=== PATIENT | male | born 1970 | race Caucasian/White ===

== ENCOUNTER 2016-06-15 16:34 | Observation (INO) | payer OTHER ==
[~2016-06-15] VITALS: Ht 182.9 cm; Wt 97.2 kg
--- NOTE | 2016-06-15 18:28 | ED ORDER SUMMARY ---
..... Patient: LILY AWAD OrderSheet [facility] VisitID: [id number] [place] [address] 46y, M Registration Date/Time: 06/15/2016 ORDER SHEET Weight: 96 kg Allergies: No Known Drug Allergy GENERAL ORDERS: [employer] Program Manager (Continuous) (16:39 06/15/2016 JSimbeck R.N. per protocol) (16:41 MWinterer R.N.) Oxygen (2 L/min) (NC) (to keep spo2 =/>94%) (16:39 06/15/2016 JSimbeck R.N. per protocol) (16:41 MWinterer R.N.) Cardiac Panel Stat (16:40 06/15/2016 JSimbeck R.N. per protocol) (Ack 16:42 TBergley) (17:00 JSimbeck R.N.) UA-Culture if indicated Urgent (16:40 06/15/2016 JSimbeck R.N. per protocol) (Ack 16:42 TBergley) (17:23 RMarsden R.N.) Pulse oximeter (16:40 06/15/2016 JSimbeck R.N. per protocol) (16:41 MWinterer R.N.) EKG - ER Stat (16:40 06/15/2016 JSimbeck R.N. per protocol) (Ack 16:42 TBergley) (16:56 TBergley) D-Dimer Urgent (17:03 06/15/2016 [facility] DO) (Ack 17:05 TBergley) (17:23 RMarsden R.N.) Blood Culture (No) (N/A) Urgent (17:43 06/15/2016 JSimbeck R.N. verbal order read back to [facility]) (17:43 JSimbeck R.N.) (Cancelled: Other17:44 JSimbeck R.N.) Chest 2V Urgent (18:05 06/15/2016 [facility]) (18:13 Jamir) MEDICATION ORDERS: Aspirin PO 325 mg (Do not crush or chew, NOW) (17:08 06/15/2016 [facility]) (17:14 RMarsden R.N.) NitroGLYCERIN Paste Topical 1.5 in. (NOW, to CW) (17:15 06/15/2016 [facility] ) (Ack 17:16 RMarsden R.N.) (17:34 RMarsden R.N.) Lovenox Subcut 80 mg (HIGH ALERT MEDICATION, NOW) (18:47 06/15/2016 [facility]) (19:23 RMarsden R.N.) GI Cocktail WHITE PO 30 mL with Lidocaine Viscous Mouth/Throat 15 mL, Maalox Plus Oral 15 mL (NOW) (19:15 06/15/2016 [facility]) (19:21 RMarsden R.N.) Insulin Reg Subcut 10 units (HIGH ALERT MEDICATION, NOW) (19:34 06/15/2016 [facility]) (Cancelled: Other19:34 [facility]) Insulin Reg Subcut 8 units (HIGH ALERT MEDICATION, NOW) (19:34 06/15/2016 [facility]) (Ack 19:36 JQuivey R.N.) (19:38 JQuivey R.N.) IV FLUIDS: IV Saline Lock (16:40 06/15/2016 Sara R.N. per protocol) (Ack 16:41 VICKYinterer R.N.) (17:02 EMMANUELimbeck R.N.) ORDER SHEET NOTES: [Electronically signed by Keshav Monge R.N. (20:32 06/15/2016)] [Electronically signed by Jason Christensen DO (20:47 06/15/2016)] [Electronically locked/signed by Keshav Monge R.N. (20:32 06/15/2016)]
--- NOTE | 2016-06-15 18:28 | ED CLINICAL REPORT ---
Clinical Report - Physicians/Mid Levels [facility] [address] [place] [address] 06/15/2016 16:36 Patient: LILY AWAD Time Seen: 16:47. Arrived- By private vehicle. Historian- patient. HISTORY OF PRESENT ILLNESS Chief Complaint: CHEST DISCOMFORT. At its maximum, severity described as moderate. When seen in the E.D., severity described as moderate. Modifying factors. Not worsened by anything. Not relieved by anything. This started today and is still present. It was gradual in onset and has been waxing/waning. Onset during light activity. It is described as dull and it is described as located in the central chest and left chest area and radiating to the left upper extremity. No nausea, vomiting or diaphoresis. He has had difficulty breathing. Similar symptoms previously: Recent medical care: Not recently seen/assessed. REVIEW OF SYSTEMS No fever, chills, fainting episodes, headache or sore throat. No abdominal pain, black stools, difficulty with urination, skin rash or enlarged lymph nodes. He has had pedal edema, joint pain, and mildly bloody stools. He has had calf pain involving the right leg and left leg (not different today). It has been similar to previous episodes. All systems otherwise negative, except as recorded above. PAST HISTORY See nurses notes. Hypertension. Diabetes mellitus. Hyperlipidemia. PCP: [facility]. No history of congestive heart failure, heart rhythm problems or pulmonary embolism. Gastroesophageal reflux. Surgeries: No history of previous surgery. SOCIAL HISTORY Smoker- current status unknown. Occasional alcohol use. No drug use. Is a local resident. FAMILY HISTORY Diabetes in first-degree relative (mother and sibling); hypertension in first-degree relative (mother and sibling). Mother " at [facility]" from a medical error. ADDITIONAL NOTES The nursing notes have been reviewed. PHYSICAL EXAM Vital Signs: 06/15/2016 16:41 BP: 147/103. HR: 103. RR: 20. O2 saturation: 98%. Temp: 97.9 F. Pain level now: 8/10. Appearance: Alert. Oriented X3. Anxious. Patient in mild distress. Eyes: Eyes normal inspection. No scleral icterus or pale conjunctivae. ENT: Pharynx normal. No pharyngeal erythema or tonsillar exudate. The mucous membranes are not dry. Neck: Normal inspection. CVS: Normal heart rate and rhythm. Heart sounds normal. Pulses normal. Respiratory: No respiratory distress. Breath sounds normal. Chest nontender. No rales, rhonchi or wheezes. Abdomen: Soft and nontender. No mass. Back: Normal external inspection. : Genital inspection normal. Rectal: Abnormal digital exam: mild tenderness. Stool heme negative. (POC test reference range: negative). Skin: Skin warm and dry. Normal skin color. Normal skin turgor. Extremities: Extremities exhibit normal ROM. No calf tenderness. No lower extremity edema. Neuro: Oriented X 3. No motor deficit. LABS, X-RAYS, AND EKG EKG: EKG time: (16:58). Normal sinus rhythm. Rate: 90. Normal P waves. Normal BENEDICT. Normal QRS complex. Non-specific ST segment / T wave abnormalities. The study has been interpreted contemporaneously by me. The EKG appears to be a good tracing. Rhythm Strip #1: Normal sinus rhythm. Regular rhythm. Narrow QRS complexes. No ectopy. Chest X-ray: No acute disease. Normal lung markings present. Normal heart size. Mediastinum normal. Great vessels normal. No infiltrate. Views: PA and lateral. Technique: good. The X-rays were interpreted contemporaneously by me. Laboratory Tests: UA-Culture if indicated: (KENNEDY: 06/15/2016 17:19) ( MsgRcvd 06/15/2016 18:42) Final results Test Result Flag Units (Reference) URINE COLOR YELLOW URINE APPEARANCE CLEAR URINE GLUCOSE 3+ (NEGATIVE) URINE BILIRUBIN NEGATIVE (NEGATIVE) URINE KETONE TRACE (NEGATIVE) URINE SPECIFIC GRAVITY 1.010 (1.010-1.030) URINE PH 5.0 (5.0-8.0) URINE PROTEIN NEGATIVE (NEGATIVE) URINE UROBILINOGEN 0.2 EU/dL (0.2-1.0) URINE NITRITE NEGATIVE (NEGATIVE) URINE BLOOD TRACE-INTACT (NEGATIVE) URINE LEUK ESTERASE NEGATIVE (NEGATIVE) URINE RBC 0-1 rbc/hpf (0-1) URINE WBC NONE SEEN wbc/hpf (0-1) URINE EPITHELIAL CELLS NONE SEEN EPI/hpf (0-5) URINE BACTERIA NONE SEEN (NONE SEEN) URINE COMMENT CULT NOT INDICATED URINE CULTURES ARE SET-UP BASED ON THE FOLLOWING CRITERIA:POSITIVE NITRITEPOSITIVE LEUKOCYTE ESTERASEGREATER THAN 10 WHITE BLOOD CELLSMODERATE (2+) OR GREATER BACTERIA CBC w Diff: (KENNEDY: 06/15/2016 16:55) ( [facility] 06/15/2016 17:20) Final results Test Result Flag Units (Reference) WHITE BLOOD COUNT 6.0 K/uL (4.5-11.5) RED BLOOD COUNT 4.96 M/uL (4.50-5.90) HEMOGLOBIN 14.3 gm/dL (13.5-17.5) HEMATOCRIT 42.5 % (41.0-53.0) MEAN CELL VOLUME 86 fL (80-100) MEAN CORPUSCULAR HGB 29 pg (26-34) MEAN CORPUSCULAR HGB CONC 34 g/dL (31-37) RED CELL DISTRIBUTION WIDTH 13.6 % (11.6-14.8) PLATELET COUNT 178 K/uL (150-400) NEUTROPHIL % 48.5 L % (50-75) LYMPH % 40.7 H % (25-40) MONO % 6.6 % (3-14) EOSINOPHIL % 1.9 % (0-4) BASOPHIL % 2.3 H % (0-2) [id number]: (KENNEDY: 06/15/2016 16:55) ( [facility] 06/15/2016 18:02) Final results Test Result Flag Units (Reference) D-DIMER QUANTITATIVE < 0.27 L ug/mLFEU (0.27-0.52) The primary value of this quantitative assay relates toits negative predictive value (i.e. exclusion) of pulmonaryembolism/deep vein thrombosis/DIC.Elevated levels of d-dimer may also occur with:, age, cancer, inflammation, liver disease,post-op, infection, hematoma, coronary disease, peripheralarteriopathy, bleeding disorders and thrombolytic treatment.Results should be correlated with other clinical andradiological data.Testing Methodology: Latex Immunoassay CHEM 13 PANEL: (KENNEDY: 06/15/2016 16:55) ( MsgRcvd 06/15/2016 18:03) Final results Test Result Flag Units (Reference) GLUCOSE 389 H mg/dL (70-110) BUN 13 mg/dL (7-18) CREATININE 1.1 mg/dL (0.6-1.3) Estimated GFR >60 mL/min Estimated GFR- >60 mL/min Note: Persistent reduction over 3 months in eGFR<60 mL/min/1.73 m2 defines CKD. Patients with eGFR values>=60 mL/min/1.73 m2 may also have CKD if evidence ofpersistent proteinuria. Additional information may be foundat [email or web address].org. SODIUM 137 mmol/L (136-145) POTASSIUM 3.9 mmol/L (3.5-5.1) CHLORIDE 99 mmol/L (98-107) CARBON DIOXIDE 31 mmol/L (21-32) CALCIUM 10.4 H mg/dL (8.5-10.1) TOTAL PROTEIN 7.7 g/dL (6.4-8.2) ALBUMIN 3.5 g/dL (3.3-5.0) BILIRUBIN, TOTAL 0.5 mg/dL (0.0-1.0) ALKALINE PHOSPHATASE 100 U/L (46-116) AST (SGOT) 16 U/L (15-37) ALT (SGPT) 34 U/L (12-78) MAGNESIUM 1.6 L mg/dL (1.8-2.4) CPK 123 U/L (24-260) TROPONIN I <0.05 L ng/mL (0.00-1.5) TROPONIN REFERENCE RANGE:<0.1 NEGATIVE0.1-1.5 INDETERMINANT>1.5 POSITIVE . Pulse Oximetry: 06/15/2016 16:41 O2 saturation: 98%. (FIO2 - room air). Interpretation: normal. PROGRESS AND PROCEDURES Course of Care: GI Cocktail 30 mL white PO given. Nitroglycerin 1.5 inches paste inches. ASA 325 mg PO given. Regular Insulin 8 units subQ given. Lovenox 80 mg subQ given. Pt with DM II and smoker. Chest discomfort is nearly resolved after NTP. He will be admitted for further work up and testing and monitoring - likely treadmill tomorrow Patient is stable. Physical exam findings are improved. Symptoms better. Discussed case with hospitalist, (Petey call returned 18:40). Reviewed test results. Agreed upon treatment plan. Health care provider will see patient in ED. Patient/family counseled. Old medical records ordered. (from [facility] [place]). Observation orders written. Disposition: Observation in Acute Care. Condition: stable and improved. CLINICAL IMPRESSION Precordial chest pain characterized as "discomfort" .12 lead EKG performed. Diarrhea. Chronic, poorly controlled type 2 diabetes with hyperglycemia. No coma. (Electronically signed by Jason Christensen DO 06/15/2016 20:47)
--- NOTE | 2016-06-15 18:28 | ED NURSING NOTES ---
Clinical Report - Nurses [facility] [address] [place] [address] 06/15/2016 16:36 [id number] Triage time 16:41. Acuity: LEVEL 3. Chief Complaint: CHEST PAIN and (Severe heartburn in epigastric region that radiates to both sides, feels like he was punched in the ribs on the left side, onset this am at rest.). 16:56 06/15/16. ( BG 321). SEPSIS SCREEN: Sepsis Screen. Negative (no infection suspected/documented). HERMANN COMA SCORE: Hermann Coma Scale: 15- eyes open spontaneously (4); best verbal response- oriented x 4 (5); best motor response- obeys commands (6). --16:56 Hilton Hernández R.N. 16:41 06/15/16. BP: 147/103 (regular adult cuff) taken on the right arm, while sitting. HR: 103. RR: 20. O2 saturation: 98% on room air. Temp: 97.9 F (oral). Pain level now: 09/26. --16:56 Hilton Hernández R.N. 16:57 06/15/16. --16:58 Hilton Hernández R.N. Weight: 96 kg. Height/Length: 72 inches. BMI: 28.7. --16:41 Hilton Hernández R.N. Medications MetFORMIN HCl Oral (Tablet 1000 mg) 1 tablet, 2x a day. --16:44 Hilton Hernández R.N. Suposed to be taking Insulin. --16:45 Hilton Hernández R.N. Lisinopril Oral 5 mg, daily. --16:45 Hilton Hernández R.N. Ibuprofen Oral (Tablet 800 mg) 1 tablet, 4x a day as needed. --16:47 Hilton Hernández R.N. Suposed to be taking Baby ASA. --16:48 Hilton Hernández R.N. The following entry was struck and corrected by Hilton Hernández R.N., 16:54 (06/15/16) Reason for correction - other(correction). <<STRICKEN ENTRY-- Lisinopril Oral. --16:45 Hilton Hernández R.N. --END STRIKE>> The following entry was struck and corrected by Hilton Hernández R.N., 16:54 (06/15/16) Reason for correction - other(correction). <<STRICKEN ENTRY-- MetFORMIN HCl Oral. --16:44 Hilton Hernández R.N. --END STRIKE>> The following entry was struck and corrected by Hilton Hernández R.N., 16:54 (06/15/16) Reason for correction - other(correction). <<STRICKEN ENTRY-- Ibuprofen Oral. --16:47 Hilton Hernández R.N. --END STRIKE>>. Allergies No Known Drug Allergy. --16:44 Hilton Hernández R.N. History Historian: patient. Accompanied by family. SOCIAL HX: Smoker- current status unknown (cigarette and electronic cigarrettes). Occasional alcohol use. No drug use. ABUSE ASSESSMENT: No report of abuse. --16:56 Hilton Hernández R.N. The patient has had difficulty breathing. ( also dizzy and lightheaded today since onset of CP). --16:58 Hilton Hernández R.N. SOCIAL HX: Former smoker (Correction: former smoker, now 'Vapes'). --17:03 Hilton Hernández R.N. PROBLEMS: Elevated Cholesterol. Hypertension. Diabetes Mellitus. --16:49 Hilton Hernández R.N. ADDITIONAL SURGERIES: no known surgeries. Interventions ID band on patient. To treatment room. --16:56 Hilton Hernández R.N. PHYSICAL ASSESSMENT 16:55. Ambulatory to room. GENERAL / NEURO / PSYCH: Alert. Oriented X 4. Appears in pain and anxious. HEENT: Mucous membranes are pink. RESPIRATORY: Respirations not labored. Chest wall tenderness. Breath sounds within normal limits. CVS: Normal sinus rhythm noted. Cardiac rhythm: normal sinus rhythm. Heart sounds within normal limits. Pulses within normal limits. Capillary refill less than 2 seconds. GI / : Abdomen soft. ( epigastric pain). EXTREMITIES: No lower extremity edema. SKIN: Skin is warm and dry. Normal skin turgor. Skin is non-tender. --17:11 Hilton Hernández R.N. NURSING PROGRESS NOTES 16:52 06/15/2016 Site #1 started via IV in the right forearm with an 20g angiocath, with aseptic technique and good blood return; one attempt. Blood drawn: rainbow set. Labeled in the presence of the patient and sent to the lab. Saline lock flushed with 10 mL saline (IV started by Keshav Roy RN). --17:02 Hilton Hernández R.N. EKG time: (4318). EKG was ordered, performed by a tech and shown to the ED physician. --17:02 Elvira Costa 16:55. computer hardware developer, pulse oximeter and NIBP monitor placed on patient; dial painter- Lead II, aVR and V1; monitor alarms on. Patient gowned. Head of bed elevated. Reassurance given. Two patient identifiers checked. Call light placed in reach. Bed placed in lowest position. Brakes of bed on. Patient ready for evaluation- chart flagged. --17:12 Hilton Hernández R.N. 17:13 06/15/2016 Aspirin PO Tablets 325 mg given. Allergies verified and confirmed 5 rights. --17:14 Josefa Fulton R.N. 17:22 06/15/16. ( h&p given to pt to fill out.). --17:22 Yolanda Verma Patient ID band checked for patient name and birthdate: patient confirmed. Instructions provided to collect clean catch urine and patient verbalized understanding. Clean catch urine collected with return of yellow-colored clear urine; sample sent to lab for urinalysis. Specimen labeled in the presence of the patient. --17:23 Josefa Fulton R.N. 17:34 06/15/2016 NITROGLYCERIN PASTE Topical Paste 1.5 inch. Applied to the left chest. Allergies verified and confirmed 5 rights. --17:34 Josefa Fulton R.N. 19:12. Care transferred and report received. --19:12 Keshav Monge R.N. <<FREDDY ENTRY-- 19:20 06/15/2016 Lidocaine Viscous PO Solution/Elixir 15 mL given. Allergies verified and confirmed 5 rights. --19:21 Josefa Fulton R.N. --END STRIKE>> Correction. --19:21 Josefa Fulton R.N. 19:20 06/15/2016 Lidocaine Viscous PO Solution/Elixir 15 mL given. Allergies verified and confirmed 5 rights. (with Maalox Plus Oral 15ml). --19:21 Josefa Fulton R.N. 19:23 06/15/2016 Lovenox (Enoxaparin Sodium) Subcutaneous 80 mg given. Given in the left abdomen. Allergies verified and confirmed 5 rights. --19:23 Josefa Fulton R.N. 19:35 Patient eating a sandwich. --19:36 Keshav Monge R.N. 19:38 06/15/2016 Insulin Reg Subcutaneous 8 unit given. Given in the right abdomen. --19:38 Keshav Monge R.N. DISPOSITION / DISCHARGE 19:35. Condition at departure: stable. No learning barriers present. Disposition: observation in Acute Care. Transported via stretcher by tech. Patient's personal items include: glasses, Other belongings; items were transported with the patient. He did not have contacts, dentures or a hearing aid. FALL RISK ASSESSMENT: Fall risk assessment completed. No fall risk identified. --19:35 Keshav Monge R.N. 19:31 06/15/16. BP: 156/99. HR: 96. RR: 17. O2 saturation: 96% on room air. Additional comments: pt reports pain as minimal . --19:35 Keshav Monge R.N. correction to prior entry -. Transported via stretcher by nurse. --19:43 Keshav Monge R.N. Departure time: 19:43. --19:43 Keshav Monge R.N. Locked/Released at 06/15/2016 20:32 by Keshav Monge R.N.
--- NOTE | 2016-06-15 18:28 | ED NURSING NOTES ---
Clinical Report - Nurses [facility] [address] [place] [address] 06/15/2016 16:36 [id number] Triage time 16:41. Acuity: LEVEL 3. Chief Complaint: CHEST PAIN and (Severe heartburn in epigastric region that radiates to both sides, feels like he was punched in the ribs on the left side, onset this am at rest.). 16:56 06/15/16. ( BG 321). SEPSIS SCREEN: Sepsis Screen. Negative (no infection suspected/documented). HERMANN COMA SCORE: Hermann Coma Scale: 15- eyes open spontaneously (4); best verbal response- oriented x 4 (5); best motor response- obeys commands (6). --16:56 Hilton Hernández R.N. 16:41 06/15/16. BP: 147/103 (regular adult cuff) taken on the right arm, while sitting. HR: 103. RR: 20. O2 saturation: 98% on room air. Temp: 97.9 F (oral). Pain level now: 09/26. --16:56 Hilton Hernández R.N. 16:57 06/15/16. --16:58 Hilton Hernández R.N. Weight: 96 kg. Height/Length: 72 inches. BMI: 28.7. --16:41 Hilton Hernández R.N. Medications MetFORMIN HCl Oral (Tablet 1000 mg) 1 tablet, 2x a day. --16:44 Hilton Hernández R.N. Suposed to be taking Insulin. --16:45 Hilton Hernández R.N. Lisinopril Oral 5 mg, daily. --16:45 Hilton Hernández R.N. Ibuprofen Oral (Tablet 800 mg) 1 tablet, 4x a day as needed. --16:47 Hilton Hernández R.N. Suposed to be taking Baby ASA. --16:48 Hilton Hernández R.N. The following entry was struck and corrected by Hilton Hernández R.N., 16:54 (06/15/16) Reason for correction - other(correction). <<STRICKEN ENTRY-- Lisinopril Oral. --16:45 Hilton Hernández R.N. --END STRIKE>> The following entry was struck and corrected by Hilton Hernández R.N., 16:54 (06/15/16) Reason for correction - other(correction). <<STRICKEN ENTRY-- MetFORMIN HCl Oral. --16:44 Hilton Hernández R.N. --END STRIKE>> The following entry was struck and corrected by Hilton Hernández R.N., 16:54 (06/15/16) Reason for correction - other(correction). <<STRICKEN ENTRY-- Ibuprofen Oral. --16:47 Hilton Hernández R.N. --END STRIKE>>. Allergies No Known Drug Allergy. --16:44 Hilton Hernández R.N. History Historian: patient. Accompanied by family. SOCIAL HX: Smoker- current status unknown (cigarette and electronic cigarrettes). Occasional alcohol use. No drug use. ABUSE ASSESSMENT: No report of abuse. --16:56 Hilton Hernández R.N. The patient has had difficulty breathing. ( also dizzy and lightheaded today since onset of CP). --16:58 Hilton Hernández R.N. SOCIAL HX: Former smoker (Correction: former smoker, now 'Vapes'). --17:03 Hilton Hernández R.N. PROBLEMS: Elevated Cholesterol. Hypertension. Diabetes Mellitus. --16:49 Hilton Hernández R.N. ADDITIONAL SURGERIES: no known surgeries. Interventions ID band on patient. To treatment room. --16:56 Hilton Hernández R.N. PHYSICAL ASSESSMENT 16:55. Ambulatory to room. GENERAL / NEURO / PSYCH: Alert. Oriented X 4. Appears in pain and anxious. HEENT: Mucous membranes are pink. RESPIRATORY: Respirations not labored. Chest wall tenderness. Breath sounds within normal limits. CVS: Normal sinus rhythm noted. Cardiac rhythm: normal sinus rhythm. Heart sounds within normal limits. Pulses within normal limits. Capillary refill less than 2 seconds. GI / : Abdomen soft. ( epigastric pain). EXTREMITIES: No lower extremity edema. SKIN: Skin is warm and dry. Normal skin turgor. Skin is non-tender. --17:11 Hilton Hernández R.N. NURSING PROGRESS NOTES 16:52 06/15/2016 Site #1 started via IV in the right forearm with an 20g angiocath, with aseptic technique and good blood return; one attempt. Blood drawn: rainbow set. Labeled in the presence of the patient and sent to the lab. Saline lock flushed with 10 mL saline (IV started by Keshav Roy RN). --17:02 Hilton Hernández R.N. EKG time: (0418). EKG was ordered, performed by a tech and shown to the ED physician. --17:02 Elvira Costa 16:55. monitor technician, pulse oximeter and NIBP monitor placed on patient; property assessment monitor- Lead II, aVR and V1; monitor alarms on. Patient gowned. Head of bed elevated. Reassurance given. Two patient identifiers checked. Call light placed in reach. Bed placed in lowest position. Brakes of bed on. Patient ready for evaluation- chart flagged. --17:12 Hilton Hernández R.N. 17:13 06/15/2016 Aspirin PO Tablets 325 mg given. Allergies verified and confirmed 5 rights. --17:14 Josefa Fulton R.N. 17:22 06/15/16. ( h&p given to pt to fill out.). --17:22 Yolanda Verma Patient ID band checked for patient name and birthdate: patient confirmed. Instructions provided to collect clean catch urine and patient verbalized understanding. Clean catch urine collected with return of yellow-colored clear urine; sample sent to lab for urinalysis. Specimen labeled in the presence of the patient. --17:23 Josefa Fulton R.N. 17:34 06/15/2016 NITROGLYCERIN PASTE Topical Paste 1.5 inch. Applied to the left chest. Allergies verified and confirmed 5 rights. --17:34 Josefa Fulton R.N. 19:12. Care transferred and report received. --19:12 Keshav Monge R.N. <<FREDDY ENTRY-- 19:20 06/15/2016 Lidocaine Viscous PO Solution/Elixir 15 mL given. Allergies verified and confirmed 5 rights. --19:21 Josefa Fulton R.N. --END STRIKE>> Correction. --19:21 Josefa Fulton R.N. 19:20 06/15/2016 Lidocaine Viscous PO Solution/Elixir 15 mL given. Allergies verified and confirmed 5 rights. (with Maalox Plus Oral 15ml). --19:21 Josefa Fulton R.N. 19:23 06/15/2016 Lovenox (Enoxaparin Sodium) Subcutaneous 80 mg given. Given in the left abdomen. Allergies verified and confirmed 5 rights. --19:23 Josefa Fulton R.N. 19:35 Patient eating a sandwich. --19:36 Keshav Monge R.N. 19:38 06/15/2016 Insulin Reg Subcutaneous 8 unit given. Given in the right abdomen. --19:38 Keshav Monge R.N. DISPOSITION / DISCHARGE 19:35. Condition at departure: stable. No learning barriers present. Disposition: observation in Acute Care. Transported via stretcher by tech. Patient's personal items include: glasses, Other belongings; items were transported with the patient. He did not have contacts, dentures or a hearing aid. FALL RISK ASSESSMENT: Fall risk assessment completed. No fall risk identified. --19:35 Keshav Monge R.N. 19:31 06/15/16. BP: 156/99. HR: 96. RR: 17. O2 saturation: 96% on room air. Additional comments: pt reports pain as minimal . --19:35 Keshav Monge R.N. correction to prior entry -. Transported via stretcher by nurse. --19:43 Keshav Monge R.N. Departure time: 19:43. --19:43 Keshav Monge R.N. Locked/Released at 06/15/2016 20:32 by Keshav Monge R.N.
--- NOTE | 2016-06-15 18:28 | ED CLINICAL REPORT ---
Clinical Report - Physicians/Mid Levels [facility] [address] [place] [address] 06/15/2016 16:36 Patient: LILY AWAD Time Seen: 16:47. Arrived- By private vehicle. Historian- patient. HISTORY OF PRESENT ILLNESS Chief Complaint: CHEST DISCOMFORT. At its maximum, severity described as moderate. When seen in the E.D., severity described as moderate. Modifying factors. Not worsened by anything. Not relieved by anything. This started today and is still present. It was gradual in onset and has been waxing/waning. Onset during light activity. It is described as dull and it is described as located in the central chest and left chest area and radiating to the left upper extremity. No nausea, vomiting or diaphoresis. He has had difficulty breathing. Similar symptoms previously: Recent medical care: Not recently seen/assessed. REVIEW OF SYSTEMS No fever, chills, fainting episodes, headache or sore throat. No abdominal pain, black stools, difficulty with urination, skin rash or enlarged lymph nodes. He has had pedal edema, joint pain, and mildly bloody stools. He has had calf pain involving the right leg and left leg (not different today). It has been similar to previous episodes. All systems otherwise negative, except as recorded above. PAST HISTORY See nurses notes. Hypertension. Diabetes mellitus. Hyperlipidemia. PCP: [facility]. No history of congestive heart failure, heart rhythm problems or pulmonary embolism. Gastroesophageal reflux. Surgeries: No history of previous surgery. SOCIAL HISTORY Smoker- current status unknown. Occasional alcohol use. No drug use. Is a local resident. FAMILY HISTORY Diabetes in first-degree relative (mother and sibling); hypertension in first-degree relative (mother and sibling). Mother " at [facility]" from a medical error. ADDITIONAL NOTES The nursing notes have been reviewed. PHYSICAL EXAM Vital Signs: 06/15/2016 16:41 BP: 147/103. HR: 103. RR: 20. O2 saturation: 98%. Temp: 97.9 F. Pain level now: 8/10. Appearance: Alert. Oriented X3. Anxious. Patient in mild distress. Eyes: Eyes normal inspection. No scleral icterus or pale conjunctivae. ENT: Pharynx normal. No pharyngeal erythema or tonsillar exudate. The mucous membranes are not dry. Neck: Normal inspection. CVS: Normal heart rate and rhythm. Heart sounds normal. Pulses normal. Respiratory: No respiratory distress. Breath sounds normal. Chest nontender. No rales, rhonchi or wheezes. Abdomen: Soft and nontender. No mass. Back: Normal external inspection. : Genital inspection normal. Rectal: Abnormal digital exam: mild tenderness. Stool heme negative. (POC test reference range: negative). Skin: Skin warm and dry. Normal skin color. Normal skin turgor. Extremities: Extremities exhibit normal ROM. No calf tenderness. No lower extremity edema. Neuro: Oriented X 3. No motor deficit. LABS, X-RAYS, AND EKG EKG: EKG time: (16:58). Normal sinus rhythm. Rate: 90. Normal P waves. Normal BENEDICT. Normal QRS complex. Non-specific ST segment / T wave abnormalities. The study has been interpreted contemporaneously by me. The EKG appears to be a good tracing. Rhythm Strip #1: Normal sinus rhythm. Regular rhythm. Narrow QRS complexes. No ectopy. Chest X-ray: No acute disease. Normal lung markings present. Normal heart size. Mediastinum normal. Great vessels normal. No infiltrate. Views: PA and lateral. Technique: good. The X-rays were interpreted contemporaneously by me. Laboratory Tests: UA-Culture if indicated: (KENNEDY: 06/15/2016 17:19) ( MsgRcvd 06/15/2016 18:42) Final results Test Result Flag Units (Reference) URINE COLOR YELLOW URINE APPEARANCE CLEAR URINE GLUCOSE 3+ (NEGATIVE) URINE BILIRUBIN NEGATIVE (NEGATIVE) URINE KETONE TRACE (NEGATIVE) URINE SPECIFIC GRAVITY 1.010 (1.010-1.030) URINE PH 5.0 (5.0-8.0) URINE PROTEIN NEGATIVE (NEGATIVE) URINE UROBILINOGEN 0.2 EU/dL (0.2-1.0) URINE NITRITE NEGATIVE (NEGATIVE) URINE BLOOD TRACE-INTACT (NEGATIVE) URINE LEUK ESTERASE NEGATIVE (NEGATIVE) URINE RBC 0-1 rbc/hpf (0-1) URINE WBC NONE SEEN wbc/hpf (0-1) URINE EPITHELIAL CELLS NONE SEEN EPI/hpf (0-5) URINE BACTERIA NONE SEEN (NONE SEEN) URINE COMMENT CULT NOT INDICATED URINE CULTURES ARE SET-UP BASED ON THE FOLLOWING CRITERIA:POSITIVE NITRITEPOSITIVE LEUKOCYTE ESTERASEGREATER THAN 10 WHITE BLOOD CELLSMODERATE (2+) OR GREATER BACTERIA CBC w Diff: (KENNEDY: 06/15/2016 16:55) ( [facility] 06/15/2016 17:20) Final results Test Result Flag Units (Reference) WHITE BLOOD COUNT 6.0 K/uL (4.5-11.5) RED BLOOD COUNT 4.96 M/uL (4.50-5.90) HEMOGLOBIN 14.3 gm/dL (13.5-17.5) HEMATOCRIT 42.5 % (41.0-53.0) MEAN CELL VOLUME 86 fL (80-100) MEAN CORPUSCULAR HGB 29 pg (26-34) MEAN CORPUSCULAR HGB CONC 34 g/dL (31-37) RED CELL DISTRIBUTION WIDTH 13.6 % (11.6-14.8) PLATELET COUNT 178 K/uL (150-400) NEUTROPHIL % 48.5 L % (50-75) LYMPH % 40.7 H % (25-40) MONO % 6.6 % (3-14) EOSINOPHIL % 1.9 % (0-4) BASOPHIL % 2.3 H % (0-2) [id number]: (KENNEDY: 06/15/2016 16:55) ( [facility] [place]/15/[place] 18:02) Final results Test Result Flag Units (Reference) D-DIMER QUANTITATIVE < 0.27 L ug/mLFEU (0.27-0.52) The primary value of this quantitative assay relates toits negative predictive value (i.e. exclusion) of pulmonaryembolism/deep vein thrombosis/DIC.Elevated levels of d-dimer may also occur with:, age, cancer, inflammation, liver disease,post-op, infection, hematoma, coronary disease, peripheralarteriopathy, bleeding disorders and thrombolytic treatment.Results should be correlated with other clinical andradiological data.Testing Methodology: Latex Immunoassay CHEM 13 PANEL: (KENNEDY: 06/15/2016 16:55) ( MsgRcvd 06/15/2016 18:03) Final results Test Result Flag Units (Reference) GLUCOSE 389 H mg/dL (70-110) BUN 13 mg/dL (7-18) CREATININE 1.1 mg/dL (0.6-1.3) Estimated GFR >60 mL/min Estimated GFR- >60 mL/min Note: Persistent reduction over 3 months in eGFR<60 mL/min/1.73 m2 defines CKD. Patients with eGFR values>=60 mL/min/1.73 m2 may also have CKD if evidence ofpersistent proteinuria. Additional information may be foundat [email or web address]. SODIUM 137 mmol/L (136-145) POTASSIUM 3.9 mmol/L (3.5-5.1) CHLORIDE 99 mmol/L (98-107) CARBON DIOXIDE 31 mmol/L (21-32) CALCIUM 10.4 H mg/dL (8.5-10.1) TOTAL PROTEIN 7.7 g/dL (6.4-8.2) ALBUMIN 3.5 g/dL (3.3-5.0) BILIRUBIN, TOTAL 0.5 mg/dL (0.0-1.0) ALKALINE PHOSPHATASE 100 U/L (46-116) AST (SGOT) 16 U/L (15-37) ALT (SGPT) 34 U/L (12-78) MAGNESIUM 1.6 L mg/dL (1.8-2.4) CPK 123 U/L (24-260) TROPONIN I <0.05 L ng/mL (0.00-1.5) TROPONIN REFERENCE RANGE:<0.1 NEGATIVE0.1-1.5 INDETERMINANT>1.5 POSITIVE . Pulse Oximetry: 06/15/2016 16:41 O2 saturation: 98%. (FIO2 - room air). Interpretation: normal. PROGRESS AND PROCEDURES Course of Care: GI Cocktail 30 mL white PO given. Nitroglycerin 1.5 inches paste inches. ASA 325 mg PO given. Regular Insulin 8 units subQ given. Lovenox 80 mg subQ given. Pt with DM II and smoker. Chest discomfort is nearly resolved after NTP. He will be admitted for further work up and testing and monitoring - likely treadmill tomorrow Patient is stable. Physical exam findings are improved. Symptoms better. Discussed case with hospitalist, (Petey call returned 18:40). Reviewed test results. Agreed upon treatment plan. Health care provider will see patient in ED. Patient/family counseled. [place] [facility] [place] Observation orders written. Disposition: Observation in Acute Care. Condition: stable and improved. CLINICAL IMPRESSION Precordial chest pain characterized as "discomfort" .12 lead EKG performed. Diarrhea. Chronic, poorly controlled type 2 diabetes with hyperglycemia. No coma. (Electronically signed by Jason Christensen DO 06/15/2016 20:47)
--- NOTE | 2016-06-15 18:28 | ED ORDER SUMMARY ---
..... Patient: LILY AWAD OrderSheet [facility] VisitID: [id number] [place] [address] 46y, M Registration Date/Time: 06/15/2016 ORDER SHEET Weight: 96 kg Allergies: No Known Drug Allergy GENERAL ORDERS: Employment Consultant (Continuous) (16:39 06/15/2016 JSimbeck R.N. per protocol) (16:41 MWinterer R.N.) Oxygen (2 L/min) (NC) (to keep spo2 =/>94%) (16:39 06/15/2016 JSimbeck R.N. per protocol) (16:41 MWinterer R.N.) Cardiac Panel Stat (16:40 06/15/2016 JSimbeck R.N. per protocol) (Ack 16:42 TBergley) (17:00 JSimbeck R.N.) UA-Culture if indicated Urgent (16:40 06/15/2016 JSimbeck R.N. per protocol) (Ack 16:42 TBergley) (17:23 RMarsden R.N.) Pulse oximeter (16:40 06/15/2016 JSimbeck R.N. per protocol) (16:41 MWinterer R.N.) EKG - ER Stat (16:40 06/15/2016 JSimbeck R.N. per protocol) (Ack 16:42 TBergley) (16:56 TBergley) D-Dimer Urgent (17:03 06/15/2016 [facility] DO) (Ack 17:05 TBergley) (17:23 RMarsden R.N.) Blood Culture (No) (N/A) Urgent (17:43 06/15/2016 JSimbeck R.N. verbal order read back to [facility]) (17:43 JSimbeck R.N.) (Cancelled: Other17:44 JSimbeck R.N.) Chest 2V Urgent (18:05 06/15/2016 [facility]) (18:13 Jamir) MEDICATION ORDERS: Aspirin PO 325 mg (Do not crush or chew, NOW) (17:08 06/15/2016 [facility]) (17:14 RMarsden R.N.) NitroGLYCERIN Paste Topical 1.5 in. (NOW, to CW) (17:15 [facility]2016 [facility] ) (Ack 17:16 RMarsden R.N.) (17:34 RMarsden R.N.) Lovenox Subcut 80 mg (HIGH ALERT MEDICATION, NOW) (18:47 06/15/2016 [facility]) (19:23 RMarsden R.N.) GI Cocktail WHITE PO 30 mL with Lidocaine Viscous Mouth/Throat 15 mL, Maalox Plus Oral 15 mL (NOW) (19:15 06/15/2016 [facility]) (19:21 RMarsden R.N.) Insulin Reg Subcut 10 units (HIGH ALERT MEDICATION, NOW) (19:34 06/15/2016 [facility]) (Cancelled: Other19:34 [facility]) Insulin Reg Subcut 8 units (HIGH ALERT MEDICATION, NOW) (19:34 06/15/2016 [facility]) (Ack 19:36 JQuivey R.N.) (19:38 JQuivey R.N.) IV FLUIDS: IV Saline Lock (16:40 06/15/2016 Sara R.N. per protocol) (Ack 16:41 VICKYinterer R.N.) (17:02 EMMANUELimbeck R.N.) ORDER SHEET NOTES: [Electronically signed by Keshav Monge R.N. (20:32 06/15/2016)] [Electronically signed by Jason Christensen DO (20:47 06/15/2016)] [Electronically locked/signed by Keshav Monge R.N. (20:32 06/15/2016)]
--- NOTE | 2016-06-15 18:29 | DIAGNOSTIC IMAGING REPORT ---
PROCEDURE: XR CHEST 2 VIEW INDICATION: CHEST PAIN TECHNIQUE: PA and lateral views. COMPARISON: None. FINDINGS: Allowing for overlying wires and electrodes, lungs are clear. Heart and mediastinum are normal. Thorax is normal. IMPRESSION: 1. Negative chest.
--- NOTE | 2016-06-15 18:54 | Progress Note ---
Subjective General Admission History and Physical Examination Patient Name: Trell Washington Admission Date: June 15, 2016 Primary Care Provider: None Attending Physician: Tyshawn Angelo M.D. Admitting Physician: Tyshawn Angelo M.D. Code Status: FULL CODE Room: 203-B Patient Status: Observation SUBJECTIVE Historian: Patient Reliability: Fair Chief Complaint: Chest pain History of Present Illness: The patient is a 46-year-old white male with a significant past make a history of hypertension, diabetes mellitus, hypercholesterolemia, nicotine dependence- smoking, who presented to [facility] emergency department on the day of admission secondary to complaints of chest pain. [facility] ER evaluation was consistent with chest pain rule out ACS. Secondary to the above, the patient was admitted by Tyshawn Angelo M.D. for further evaluation and treatment. The history of present was apparently began on the day of admission when the patient developed symptoms consistent with gastroesophageal reflux. He subsequently experienced lower chest/epigastric pain which radiated bilaterally. This occurred while at rest. It was associated with shortness of breath and lightheadedness. The pain was constant in nature. He rated the 8 out of 10. No nausea or vomiting. Secondary to the above he presented to [facility] emergency department for further evaluation and treatment. [facility] ER evaluation was consistent with chest pain rule out ACS, gastroesophageal reflux, uncontrolled diabetes mellitus, hypertension, nicotine dependence-vapor smoking, hypomagnesemia, and hypercholesterolemia. Secondary to the above, the patient was admitted for further evaluation and treatment PAST MEDICAL HISTORY Illnesses: 1. Hypertension 2. Diabetes mellitus 3. Hypercholesterolemia 4. Nicotine dependence-smoking Allergies: 1. No Known Drug Allergies Medications: 1. Metformin 1000 mg by mouth twice a day 2. Lisinopril 5 mg by mouth daily 3. Ibuprofen 800 mg by mouth 4 times a day when necessary pain 4. ASA 81 mg 1 by mouth daily Surgery: 1. None Injuries: 1. No significant Hospitalizations: 1. For above surgery and medical problems FAMILY HISTORY Parents: 1. Father, Jose, , 68, diabetes mellitus, 2. Mother, Siena, , 60, intraoperative medication error Siblings: 1. The patient has 3 male siblings all living with a history of diabetes mellitus Children: 1. None Other significant family history: None SOCIAL HISTORY 1. Marital Status: 2. Mosque: Confucianist-oriental orthodox 3. Education: College bachelor's degree 4. Employment History: Unemployed 5. Occupational health exposures: No significant HABITS 1. Tobacco: 45 pack years-cigarettes, continues to use vapor cigarettes with nicotine 2. Drugs: No drug use 3. Alcohol: Occasional alcohol usage 4. Caffeine: One cup tea, one can soft drink per day HEALTH SUPERVISION Item/Test 1. Vision screen: No recent 2. Cholesterol Profile: 2015 3. PSA: No recent 4. MARLO: No recent 5. FOBT: No recent 6. Blood Glucose: 2017 7. Colonoscopy: No previous 8. History and physical exam: No recent 9. Audiogram: No recent 10. Mammogram: Not applicable 11. Pap/pelvic exam: Not applicable IMMUNIZATIONS: 1. Pneumococcal: No previous 2. Influenza: No previous 3. Tetanus: No previous ADVANCED DIRECTIVES: 1. Living well: No 2. POLST: No 3. Code Status: FULL CODE 4. 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 Donor card: No REVIEW OF SYSTEMS Remarkable for those things stated in the history of present illness and past medical history. Seventeen point review of system completed with the following notable findings: Gastrointestinal: Nausea, heartburn Musculoskeletal: Muscle cramping Endocrine: Diabetes mellitus Genitourinary: Erectile dysfunction Physical Exam Vital Signs / I&Os Blood pressure: 147/103 mmHg Heart rate: 103/minute Respiratory rate: 20/minute Temperature: 97.9 Fahrenheit orally Pulse oximetry: 98% room air General Appearance Alert, Oriented X3, Cooperative, No acute distress HEENT Atraumatic, PERRLA, EOMI, Moist mucous membranes Lungs Clear to auscultation, Normal air movement Neck Supple, No JVD, No masses, 2+ carotid pulse wo bruit Cardiovascular Regular rate and rhythm, Normal S1 and S2, No murmurs, gallops, rubs Abdomen Normal bowel sounds, Soft, No tenderness Extremities No cyanosis, No clubbing, No edema, Normal pulses Neurological Cranial nerves intact, Strength 5/5 x4 ext's, No lateralizing signs Psych/Mental Status Mental status normal, Mood normal LAB Results Laboratory Tests 06/15 06/15 1719 1655 Chemistry Plasma Sodium (136 - 145 mmol/L) 137 Plasma Potassium (3.5 - 5.1 mmol/L) 3.9 Plasma Chloride (98 - 107 mmol/L) 99 CO2 (Enzymatic) (21 - 32 mmol/L) 31 BUN (7 - 18 mg/dL) 13 Creatinine (0.6 - 1.3 mg/dL) 1.1 Est GFR ( Amer) (mL/min) >60 Est GFR (Non-Af Amer) (mL/min) >60 Glucose (70 - 110 mg/dL) 389 Plasma Calcium (8.5 - 10.1 mg/dL) 10.4 Plasma Magnesium (1.8 - 2.4 mg/dL) 1.6 Total Bilirubin (0.0 - 1.0 mg/dL) 0.5 AST (15 - 37 U/L) 16 ALT (12 - 78 U/L) 34 Alkaline Phosphatase (46 - 116 U/L) 100 Creatine Kinase (24 - 260 U/L) 123 Troponin (0.00 - 1.5 ng/mL) <0.05 Total Protein (6.4 - 8.2 g/dL) 7.7 Albumin (3.3 - 5.0 g/dL) 3.5 Coagulation D-Dimer, Quantitative (0.27 - 0.52 ug/mLFEU) < 0.27 Hematology WBC (4.5 - 11.5 K/uL) 6.0 RBC (4.50 - 5.90 M/uL) 4.96 Hgb (13.5 - 17.5 gm/dL) 14.3 Hct (41.0 - 53.0 %) 42.5 MCV (80 - 100 fL) 86 MCH (26 - 34 pg) 29 RDW (11.6 - 14.8 %) 13.6 Neut % (Auto) (50 - 75 %) 48.5 Lymph % (Auto) (25 - 40 %) 40.7 [place] % (Auto) (3 - 14 %) 6.6 Eos % (Auto) (0 - 4 %) 1.9 Baso % (Auto) (0 - 2 %) 2.3 Plt Count, EDTA (150 - 400 K/uL) 178 PUBS MCHC (31 - 37 g/dL) 34 Urines Urine Color YELLOW Urine Appearance CLEAR Urine pH (5.0 - 8.0) 5.0 Ur Specific [place] (1.010 - 1.030) 1.010 Urine Protein (NEGATIVE) NEGATIVE Urine Ketones (NEGATIVE) TRACE Urine Blood (NEGATIVE) TRACE-INTACT Urine Nitrite (NEGATIVE) NEGATIVE Urine Bilirubin (NEGATIVE) NEGATIVE Urine Urobilinogen (0.2 - 1.0 EU/dL) 0.2 Ur Leukocyte Esterase (NEGATIVE) NEGATIVE Urine RBC (0 - 1 rbc/hpf) 0-1 Urine WBC (0 - 1 wbc/hpf) NONE SEEN Ur Epithelial Cells (0 - 5 EPI/hpf) NONE SEEN Urine Bacteria (NONE SEEN) NONE SEEN Urine Glucose (NEGATIVE) 3+ Urine Comment CULT NOT INDICATED Imaging Chest X-Ray IMPRESSION: 1. Negative chest. Dictated by: MOOK CHAVEZ MD D: HOOD;06/15/16 [id number] Assessment and Plan Problem List 1. Chest pain Status Acute Onset Date Unknown Plan -Patient presents with history of chest pain rule out ACS -Serial troponin/EKG -Cardiac diet -Lisinopril, topical nitrates, aspirin, Lovenox -Schedule exercise stress test if ACS ruled out 2. Diabetes mellitus Status Chronic Onset Date Unknown Plan -Patient with history of diabetes mellitus -Blood sugar uncontrolled -Admission blood glucose 389 mg/dL -Insulin sliding scale -Check hemoglobin A1c -Referred to diabetic education 3. Hypertension Status Chronic Onset Date Unknown Plan -Patient with history of hypertension -Lisinopril 10 mg by mouth twice a day -Nitroglycerin paste 1.5 g topically every 6 hours -Monitor -Low-salt diet 4. Hypercholesterolemia Status Chronic Onset Date Unknown Plan -Patient with history of hypercholesterolemia -Lipid profile -Low-cholesterol/low-fat diet -Monitor 5. Nicotine dependence Status Chronic Onset Date Unknown Plan -Patient with history of nicotine dependence-smoking/baby usage -Smoking cessation education -Encourage smoking abstinence post discharge -NicoDerm patch when necessary 6. Hypomagnesemia Status Acute Onset Date Unknown Plan -Patient with findings of hypomagnesemia -Magnesium 2 g IV now -Slow-Mag one by mouth 3 times a day -Monitor Current status: Fair, unstable Anticipated discharge date: Anticipated discharge in 24 hours Anticipated discharge placement: Home Patient care time: Time spent in chart review, patient interview, physical exam, CPOE, and care documentation: 70 minutes Visit to patient today: 1 Complexity of care: High Initial patient evaluation: Emergency department DVT prophylaxis: Lovenox 40 mg subcutaneous daily GI prophylaxis: Protonix 40 mg by mouth daily E&M Codes Admission: Obsv-Comp/High/[id number]
--- NOTE | 2016-06-15 18:54 | Progress Note ---
Subjective General Admission History and Physical Examination Patient Name: Trell Washington Admission Date: June 15, 2016 Primary Care Provider: None Attending Physician: Tyshawn Angelo M.D. Admitting Physician: Tyshwan Angelo M.D. Code Status: FULL CODE Room: 203-B Patient Status: Observation SUBJECTIVE Historian: Patient Reliability: Fair Chief Complaint: Chest pain History of Present Illness: The patient is a 46-year-old white male with a significant past make a history of hypertension, diabetes mellitus, hypercholesterolemia, nicotine dependence- smoking, who presented to [facility] emergency department on the day of admission secondary to complaints of chest pain. [facility] ER evaluation was consistent with chest pain rule out ACS. Secondary to the above, the patient was admitted by Tyshawn Angelo M.D. for further evaluation and treatment. The history of present was apparently began on the day of admission when the patient developed symptoms consistent with gastroesophageal reflux. He subsequently experienced lower chest/epigastric pain which radiated bilaterally. This occurred while at rest. It was associated with shortness of breath and lightheadedness. The pain was constant in nature. He rated the 8 out of 10. No nausea or vomiting. Secondary to the above he presented to [facility] emergency department for further evaluation and treatment. [facility] ER evaluation was consistent with chest pain rule out ACS, gastroesophageal reflux, uncontrolled diabetes mellitus, hypertension, nicotine dependence-vapor smoking, hypomagnesemia, and hypercholesterolemia. Secondary to the above, the patient was admitted for further evaluation and treatment PAST MEDICAL HISTORY Illnesses: 1. Hypertension 2. Diabetes mellitus 3. Hypercholesterolemia 4. Nicotine dependence-smoking Allergies: 1. No Known Drug Allergies Medications: 1. Metformin 1000 mg by mouth twice a day 2. Lisinopril 5 mg by mouth daily 3. Ibuprofen 800 mg by mouth 4 times a day when necessary pain 4. ASA 81 mg 1 by mouth daily Surgery: 1. None Injuries: 1. No significant Hospitalizations: 1. For above surgery and medical problems FAMILY HISTORY Parents: 1. Father, Jose, , 68, diabetes mellitus, 2. Mother, Siena, , 60, intraoperative medication error Siblings: 1. The patient has 3 male siblings all living with a history of diabetes mellitus Children: 1. None Other significant family history: None SOCIAL HISTORY 1. Marital Status: 2. Worship: Spiritism-holiness 3. Education: College bachelor's degree 4. Employment History: Unemployed 5. Occupational health exposures: No significant HABITS 1. Tobacco: 45 pack years-cigarettes, continues to use vapor cigarettes with nicotine 2. Drugs: No drug use 3. Alcohol: Occasional alcohol usage 4. Caffeine: One cup tea, one can soft drink per day HEALTH SUPERVISION Item/Test 1. Vision screen: No recent 2. Cholesterol Profile: 2015 3. PSA: No recent 4. MARLO: No recent 5. FOBT: No recent 6. Blood Glucose: 2017 7. Colonoscopy: No previous 8. History and physical exam: No recent 9. Audiogram: No recent 10. Mammogram: Not applicable 11. Pap/pelvic exam: Not applicable IMMUNIZATIONS: 1. Pneumococcal: No previous 2. Influenza: No previous 3. Tetanus: No previous ADVANCED DIRECTIVES: 1. Living well: No 2. POLST: No 3. Code Status: FULL CODE 4. Durable Power Conference Interpreter Health care: None 5. Donor card: No REVIEW OF SYSTEMS Remarkable for those things stated in the history of present illness and past medical history. Seventeen point review of system completed with the following notable findings: Gastrointestinal: Nausea, heartburn Musculoskeletal: Muscle cramping Endocrine: Diabetes mellitus Genitourinary: Erectile dysfunction Physical Exam Vital Signs / I&Os Blood pressure: 147/103 mmHg Heart rate: 103/minute Respiratory rate: 20/minute Temperature: 97.9 Fahrenheit orally Pulse oximetry: 98% room air General Appearance Alert, Oriented X3, Cooperative, No acute distress HEENT Atraumatic, PERRLA, EOMI, Moist mucous membranes Lungs Clear to auscultation, Normal air movement Neck Supple, No JVD, No masses, 2+ carotid pulse wo bruit Cardiovascular Regular rate and rhythm, Normal S1 and S2, No murmurs, gallops, rubs Abdomen Normal bowel sounds, Soft, No tenderness Extremities No cyanosis, No clubbing, No edema, Normal pulses Neurological Cranial nerves intact, Strength 5/5 x4 ext's, No lateralizing signs Psych/Mental Status Mental status normal, Mood normal LAB Results Laboratory Tests 06/15 06/15 1719 1655 Chemistry Plasma Sodium (136 - 145 mmol/L) 137 Plasma Potassium (3.5 - 5.1 mmol/L) 3.9 Plasma Chloride (98 - 107 mmol/L) 99 CO2 (Enzymatic) (21 - 32 mmol/L) 31 BUN (7 - 18 mg/dL) 13 Creatinine (0.6 - 1.3 mg/dL) 1.1 Est GFR ( Amer) (mL/min) >60 Est GFR (Non-Af Amer) (mL/min) >60 Glucose (70 - 110 mg/dL) 389 Plasma Calcium (8.5 - 10.1 mg/dL) 10.4 Plasma Magnesium (1.8 - 2.4 mg/dL) 1.6 Total Bilirubin (0.0 - 1.0 mg/dL) 0.5 AST (15 - 37 U/L) 16 ALT (12 - 78 U/L) 34 Alkaline Phosphatase (46 - 116 U/L) 100 Creatine Kinase (24 - 260 U/L) 123 Troponin (0.00 - 1.5 ng/mL) <0.05 Total Protein (6.4 - 8.2 g/dL) 7.7 Albumin (3.3 - 5.0 g/dL) 3.5 Coagulation D-Dimer, Quantitative (0.27 - 0.52 ug/mLFEU) < 0.27 Hematology WBC (4.5 - 11.5 K/uL) 6.0 RBC (4.50 - 5.90 M/uL) 4.96 Hgb (13.5 - 17.5 gm/dL) 14.3 Hct (41.0 - 53.0 %) 42.5 MCV (80 - 100 fL) 86 MCH (26 - 34 pg) 29 RDW (11.6 - 14.8 %) 13.6 Neut % (Auto) (50 - 75 %) 48.5 Lymph % (Auto) (25 - 40 %) 40.7 [place] % (Auto) (3 - 14 %) 6.6 Eos % (Auto) (0 - 4 %) 1.9 Baso % (Auto) (0 - 2 %) 2.3 Plt Count, EDTA (150 - 400 K/uL) 178 PUBS MCHC (31 - 37 g/dL) 34 Urines Urine Color YELLOW Urine Appearance CLEAR Urine pH (5.0 - 8.0) 5.0 Ur Specific [place] (1.010 - 1.030) 1.010 Urine Protein (NEGATIVE) NEGATIVE Urine Ketones (NEGATIVE) TRACE Urine Blood (NEGATIVE) TRACE-INTACT Urine Nitrite (NEGATIVE) NEGATIVE Urine Bilirubin (NEGATIVE) NEGATIVE Urine Urobilinogen (0.2 - 1.0 EU/dL) 0.2 Ur Leukocyte Esterase (NEGATIVE) NEGATIVE Urine RBC (0 - 1 rbc/hpf) 0-1 Urine WBC (0 - 1 wbc/hpf) NONE SEEN Ur Epithelial Cells (0 - 5 EPI/hpf) NONE SEEN Urine Bacteria (NONE SEEN) NONE SEEN Urine Glucose (NEGATIVE) 3+ Urine Comment CULT NOT INDICATED Imaging Chest X-Ray IMPRESSION: 1. Negative chest. Dictated by: MOOK CHAVEZ MD D: HOOD;06/15/16 2564 Assessment and Plan Problem List 1. Chest pain Status Acute Onset Date Unknown Plan -Patient presents with history of chest pain rule out ACS -Serial troponin/EKG -Cardiac diet -Lisinopril, topical nitrates, aspirin, Lovenox -Schedule exercise stress test if ACS ruled out 2. Diabetes mellitus Status Chronic Onset Date Unknown Plan -Patient with history of diabetes mellitus -Blood sugar uncontrolled -Admission blood glucose 389 mg/dL -Insulin sliding scale -Check hemoglobin A1c -Referred to diabetic education 3. Hypertension Status Chronic Onset Date Unknown Plan -Patient with history of hypertension -Lisinopril 10 mg by mouth twice a day -Nitroglycerin paste 1.5 g topically every 6 hours -Monitor -Low-salt diet 4. Hypercholesterolemia Status Chronic Onset Date Unknown Plan -Patient with history of hypercholesterolemia -Lipid profile -Low-cholesterol/low-fat diet -Monitor 5. Nicotine dependence Status Chronic Onset Date Unknown Plan -Patient with history of nicotine dependence-smoking/baby usage -Smoking cessation education -Encourage smoking abstinence post discharge -NicoDerm patch when necessary 6. Hypomagnesemia Status Acute Onset Date Unknown Plan -Patient with findings of hypomagnesemia -Magnesium 2 g IV now -Slow-Mag one by mouth 3 times a day -Monitor Current status: Fair, unstable Anticipated discharge date: Anticipated discharge in 24 hours Anticipated discharge placement: Home Patient care time: Time spent in chart review, patient interview, physical exam, CPOE, and care documentation: 70 minutes Visit to patient today: 1 Complexity of care: High Initial patient evaluation: Emergency department DVT prophylaxis: Lovenox 40 mg subcutaneous daily GI prophylaxis: Protonix 40 mg by mouth daily E&M Codes Admission: Obsv-Comp/High/[id number]
[2016-06-15 19:51] VITALS: BP 137/94
--- NOTE | 2016-06-15 20:47 | ED MED RECONCILIATION SUMMARY ---
Patient: LILY AWAD Medication Reconciliation Report [facility] VisitID: [id number] [address] [place] [address] 46y, M Registration Date/Time: 06/15/2016 Weight: 96 kg Height/Length: 72 in. BMI: 28.7 ALLERGIES: No Known Drug Allergy The patient's Home Medications are listed below: THE FOLLOWING MEDICATIONS NEED TO BE RECONCILED: Ibuprofen Oral (800 mg) 1 tablet, 4x a day Lisinopril Oral 5 mg, daily MetFORMIN HCl Oral (1000 mg) 1 tablet, 2x a day Suposed to be taking Baby ASA Suposed to be taking Insulin The source(s) of the original Home Medication information: Not obtained. The following Medications were given to the patient in the Emergency Department: Aspirin [PO] PO 325 mg, administered: 06/15/2016 5:13:00 PM NITROGLYCERIN PASTE [TOPICAL] Topical 1.5 in., administered: 06/15/2016 5:34:00 PM Lidocaine Viscous [PO] PO 15 mL, administered: 06/15/2016 7:20:00 PM Lovenox [Subcutaneous] Subcutaneous 80 mg, administered: 06/15/2016 7:23:00 PM Insulin Reg [Subcutaneous] Subcutaneous 8 unit, administered: 06/15/2016 7:38:00 PM The following Medications were prescribed to the patient: None.
--- NOTE | 2016-06-15 20:47 | ED MED RECONCILIATION SUMMARY ---
Patient: LILY AWAD Medication Reconciliation Report [facility] VisitID: [id number] [address] [place] [address] 46y, M Registration Date/Time: 06/15/2016 Weight: 96 kg Height/Length: 72 in. BMI: 28.7 ALLERGIES: No Known Drug Allergy The patient's Home Medications are listed below: THE FOLLOWING MEDICATIONS NEED TO BE RECONCILED: Ibuprofen Oral (800 mg) 1 tablet, 4x a day Lisinopril Oral 5 mg, daily MetFORMIN HCl Oral (1000 mg) 1 tablet, 2x a day Suposed to be taking Baby ASA Suposed to be taking Insulin The source(s) of the original Home Medication information: Not obtained. The following Medications were given to the patient in the Emergency Department: Aspirin [PO] PO 325 mg, administered: 06/15/2016 5:13:00 PM NITROGLYCERIN PASTE [TOPICAL] Topical 1.5 in., administered: 06/15/2016 5:34:00 PM Lidocaine Viscous [PO] PO 15 mL, administered: 06/15/2016 7:20:00 PM Lovenox [Subcutaneous] Subcutaneous 80 mg, administered: 06/15/2016 7:23:00 PM Insulin Reg [Subcutaneous] Subcutaneous 8 unit, administered: 06/15/2016 7:38:00 PM The following Medications were prescribed to the patient: None.
--- NOTE | 2016-06-15 20:47 | ED MAR SUMMARY ---
..... Medication Administration Record [facility] [address] [place] [address] Patient: LILY AWAD Visit ID: [id number] 46y, M Weight: 96.0 kg Height/Length: 72 in BMI: 28.7 ALLERGIES: No Known Drug Allergy Given 17:13 06/15/2016 Josefa Fulton RKhurramNKhurram Medication Administered: ASPIRIN [PO], Dose: 325 mg Tablets PO. Medication Ordered: Aspirin PO 325 mg (Do not crush or chew, NOW). Given 17:34 06/15/2016 Josefa Fulton R.NKhurram Medication Administered: NITROGLYCERIN PASTE [TOPICAL], Dose: 1.5 in. Paste Topical. Medication Ordered: NitroGLYCERIN Paste Topical 1.5 in. (NOW, to ). Given 19:20 06/15/2016 Josefa Fulton R.NKhurram Medication Administered: LIDOCAINE VISCOUS [PO], Dose: 15 mL Solution/Elixir PO. Medication Ordered: GI Cocktail WHITE PO 30 mL with Lidocaine Viscous Mouth/Throat 15 mL, Maalox Plus Oral 15 mL (NOW). Given 19:23 06/15/2016 Josefa Fulton, RKhurramNKhurram Medication Administered: LOVENOX [SUBCUTANEOUS] (ENOXAPARIN SODIUM), Dose: 80 mg Subcutaneous. Medication Ordered: Lovenox Subcut 80 mg (HIGH ALERT MEDICATION, NOW). Given 19:38 06/15/2016 Keshav Monge RKhurramNKhurram Medication Administered: INSULIN REG [SUBCUTANEOUS], Dose: 8 unit Subcutaneous. Medication Ordered: Insulin Reg Subcut 8 units (HIGH ALERT MEDICATION, NOW).
--- NOTE | 2016-06-15 20:47 | ED MAR SUMMARY ---
..... Medication Administration Record [facility] [address] [place] [address] Patient: LILY AWAD Visit ID: [id number] 46y, M Weight: 96.0 kg Height/Length: 72 in BMI: 28.7 ALLERGIES: No Known Drug Allergy Given 17:13 06/15/2016 Josefa Fulton RKhurramNKhurram Medication Administered: ASPIRIN [PO], Dose: 325 mg Tablets PO. Medication Ordered: Aspirin PO 325 mg (Do not crush or chew, NOW). Given 17:34 06/15/2016 Josefa Fulton R.NKhurram Medication Administered: NITROGLYCERIN PASTE [TOPICAL], Dose: 1.5 in. Paste Topical. Medication Ordered: NitroGLYCERIN Paste Topical 1.5 in. (NOW, to ). Given 19:20 06/15/2016 Josefa Fulton R.NKhurram Medication Administered: LIDOCAINE VISCOUS [PO], Dose: 15 mL Solution/Elixir PO. Medication Ordered: GI Cocktail WHITE PO 30 mL with Lidocaine Viscous Mouth/Throat 15 mL, Maalox Plus Oral 15 mL (NOW). Given 19:23 06/15/2016 Josefa Fulton, RKhurramNKhurram Medication Administered: LOVENOX [SUBCUTANEOUS] (ENOXAPARIN SODIUM), Dose: 80 mg Subcutaneous. Medication Ordered: Lovenox Subcut 80 mg (HIGH ALERT MEDICATION, NOW). Given 19:38 06/15/2016 Keshav Monge RKhurramNKhurram Medication Administered: INSULIN REG [SUBCUTANEOUS], Dose: 8 unit Subcutaneous. Medication Ordered: Insulin Reg Subcut 8 units (HIGH ALERT MEDICATION, NOW).
--- NOTE | 2016-06-15 20:47 | ED DISCHARGE INSTRUCTIONS ---
Patient: LILY AWAD General Instructions [facility] VisitID: [id number] [address] [place] [address] 46y, M Registration Date/Time: 06/15/2016 Precordial chest pain characterized as "discomfort" .12 lead EKG performed. Diarrhea. Chronic, poorly controlled type 2 diabetes with hyperglycemia. No coma. (Electronically signed by Jason Christensen DO 06/15/2016 20:47)
--- NOTE | 2016-06-15 20:47 | ED DISCHARGE INSTRUCTIONS ---
Patient: LILY AWAD General Instructions [facility] VisitID: [id number] [address] [place] [address] 46y, M Registration Date/Time: 06/15/2016 Precordial chest pain characterized as "discomfort" .12 lead EKG performed. Diarrhea. Chronic, poorly controlled type 2 diabetes with hyperglycemia. No coma. (Electronically signed by Jason Christensen DO 06/15/2016 20:47)
[2016-06-16 00:04] VITALS: BP 135/78
[2016-06-16] MEDS ORDERED: METFORMIN HCL500 MG PO (03:52)
[2016-06-16] MEDS ORDERED: PRINIVIL5 MG PO (03:53)
[2016-06-16] MEDS ORDERED: MOTRIN100 MG/5 M PO (03:56)
[2016-06-16] MEDS ORDERED: IBUPROFEN400 MG PO (03:56)
[2016-06-16] MEDS ORDERED: ASPIRIN ADULT L81 M1 PO (04:05)
[2016-06-16 04:12] VITALS: BP 115/61
--- NOTE | 2016-06-16 06:46 | Progress Note ---
Subjective General Note Date: June 16, 2016 Admission Date: June 15, 2016 Hospital Day:2 PCP: none Status: Inpatient Observation Advanced Directive: FULL CODE Room: 204 46-year-old white male with a significant past make a history of hypertension, diabetes mellitus, hypercholesterolemia, nicotine dependence-smoking, who presented to [facility] emergency department on the day of admission secondary to complaints of chest pain. [facility] ER evaluation was consistent with chest pain rule out ACS. Secondary to the above, the patient was admitted by Tyshawn Angelo M.D. for further evaluation and treatment. Subjective: Patient reports that he is feeling much better. Patient states that he is having persistence lower chest pain, but no associated nausea and no vomiting. Patient is able to eat his breakfast without concern. Patient states that his discomfort is markedly decreased since being seen. Patient's troponins were negative. Patient is awaiting for potential stress test. Patient, however, was told that the ability to perform a stress test was not available at this time. Patient will be needed to follow-up as an outpatient. He needs a primary care provider. Patient needs: Medication and supplies. Outpatient stress test Primary care provider Constitutional Denies: Fever, Chills. Respiratory Denies: SOB w/exertion, Wheezing. Cardiovascular Denies: Palpitations. Gastrointestinal Denies: Other (epigastric pain). Physical Exam Vital Signs / I&Os Vital Signs Date Time Temp Pulse Resp B/P Pulse O2 O2 Flow FiO2 Ox Delivery Rate 06/16 0412 97.9 74 20 115/61 96 Room Air 06/16 0004 97.9 68 20 135/78 99 Room Air 06/15 1951 97.9 94 20 137/94 97 Room Air I&O 06/15 0800 06/15 1600 06/16 0000 Intake Total 450 Output Total Balance 450 General Appearance Oriented X3, Cooperative HEENT EOMI Lungs Clear to auscultation Neck Supple Abdomen Soft, No guarding, tenderness in the epigastric region Extremities No clubbing, No edema Neurological Normal gait, Normal speech Psych/Mental Status Mental status normal, Mood normal LAB Results Laboratory Tests 06/15 06/15 1655 1655 Chemistry Plasma Sodium (136 - 145 mmol/L) 137 Plasma Potassium (3.5 - 5.1 mmol/L) 3.9 Plasma Chloride (98 - 107 mmol/L) 99 CO2 (Enzymatic) (21 - 32 mmol/L) 31 BUN (7 - 18 mg/dL) 13 Creatinine (0.6 - 1.3 mg/dL) 1.1 Est GFR ( Amer) (mL/min) >60 Est GFR (Non-Af Amer) (mL/min) >60 Glucose (70 - 110 mg/dL) 389 Hemoglobin A1c % (4.5 - 6.2 %) 12.4 Plasma Calcium (8.5 - 10.1 mg/dL) 10.4 Plasma Magnesium (1.8 - 2.4 mg/dL) 1.6 Total Bilirubin (0.0 - 1.0 mg/dL) 0.5 AST (15 - 37 U/L) 16 ALT (12 - 78 U/L) 34 Alkaline Phosphatase (46 - 116 U/L) 100 Creatine Kinase (24 - 260 U/L) 123 Troponin (0.00 - 1.5 ng/mL) <0.05 Total Protein (6.4 - 8.2 g/dL) 7.7 Albumin (3.3 - 5.0 g/dL) 3.5 Coagulation D-Dimer, Quantitative (0.27 - 0.52 ug/mLFEU) < 0.27 Hematology WBC (4.5 - 11.5 K/uL) 6.0 RBC (4.50 - 5.90 M/uL) 4.96 Hgb (13.5 - 17.5 gm/dL) 14.3 Hct (41.0 - 53.0 %) 42.5 MCV (80 - 100 fL) 86 MCH (26 - 34 pg) 29 RDW (11.6 - 14.8 %) 13.6 Neut % (Auto) (50 - 75 %) 48.5 Lymph % (Auto) (25 - 40 %) 40.7 [place] % (Auto) (3 - 14 %) 6.6 Eos % (Auto) (0 - 4 %) 1.9 Baso % (Auto) (0 - 2 %) 2.3 Plt Count, EDTA (150 - 400 K/uL) 178 PUBS MCHC (31 - 37 g/dL) 34 06/15 06/15 06/16 06/16 1719 2144 0410 0410 Chemistry Plasma Sodium (136 - 145 mmol/L) 141 Plasma Potassium (3.5 - 5.1 mmol/L) 3.6 Plasma Chloride (98 - 107 mmol/L) 101 CO2 (Enzymatic) (21 - 32 mmol/L) 27 BUN (7 - 18 mg/dL) 14 Creatinine (0.6 - 1.3 mg/dL) 0.8 Est GFR ( Amer) (mL/min) >60 Est GFR (Non-Af Amer) (mL/min) >60 Glucose (70 - 110 mg/dL) 304 Plasma Calcium (8.5 - 10.1 mg/dL) 8.8 Troponin (0.00 - 1.5 ng/mL) <0.05 Triglycerides (30 - 200 mg/dL) 733 Cholesterol (140 - 200 mg/dL) 159 LDL Cholesterol, Calc (mg/dL) 18 HDL Cholesterol (32 - 96 mg/dL) 31 LDL/HDL Ratio 0.6 Cholesterol/HDL Ratio 5.1 Coronary Risk Interp (0.4 - 1.0) 1.1 Hematology WBC (4.5 - 11.5 K/uL) 4.8 RBC (4.50 - 5.90 M/uL) 4.39 Hgb (13.5 - 17.5 gm/dL) 12.7 Hct (41.0 - 53.0 %) 38.1 MCV (80 - 100 fL) 87 MCH (26 - 34 pg) 29 RDW (11.6 - 14.8 %) 14.0 Neut % (Auto) (50 - 75 %) 32.6 Lymph % (Auto) (25 - 40 %) 56.3 [place] % (Auto) (3 - 14 %) 7.6 Eos % (Auto) (0 - 4 %) 3.0 Baso % (Auto) (0 - 2 %) 0.5 Plt Count, EDTA (150 - 400 K/uL) 163 PUBS MCHC (31 - 37 g/dL) 33 Urines Urine Color YELLOW Urine Appearance CLEAR Urine pH (5.0 - 8.0) 5.0 Ur Specific [place] (1.010 - 1.030) 1.010 Urine Protein (NEGATIVE) NEGATIVE Urine Ketones (NEGATIVE) TRACE Urine Blood (NEGATIVE) TRACE-INTACT Urine Nitrite (NEGATIVE) NEGATIVE Urine Bilirubin (NEGATIVE) NEGATIVE Urine Urobilinogen (0.2 - 1.0 EU/dL) 0.2 Ur Leukocyte Esterase (NEGATIVE) NEGATIVE Urine RBC (0 - 1 rbc/hpf) 0-1 Urine WBC (0 - 1 wbc/hpf) NONE SEEN Ur Epithelial Cells (0 - 5 EPI/hpf) NONE SEEN Urine Bacteria (NONE SEEN) NONE SEEN Urine Glucose (NEGATIVE) 3+ Urine Comment CULT NOT INDICATED 06/16 409 Chemistry Troponin (0.00 - 1.5 ng/mL) <0.05 Imaging Chest x-ray found to be normal Assessment and Plan Problem List 1. Chest pain Status Acute Onset Date Unknown Plan Patient admitted with chest pain and ACS. Patient essentially ruled out negative troponins overnight. Patient is eating well but still having symptoms. Patient has no primary care provider. Patient will need to be seen as an outpatient for cardiac stress test. Unfortunately, the testing is unavailable today in the hospital. Patient will need to be discharged and then follow-up with primary care and then subsequent orders for a cardiac stress test 2. Diabetes mellitus Status Chronic Onset Date Unknown Plan Diabetes is not well managed. A1c at 12. Patient has not been on insulin for multiple weeks. Patient requesting that when he is discharged home, he can have a prescription for insulin. Patient takes up to 10-14 units of Lantus daily. In addition to that, he is on his metformin. Patient is on an SCARLET inhibitor. Patient's blood pressure was relatively well managed inpatient. 3. Hypertension Status Chronic Onset Date Unknown Plan The blood-pressure well-managed inpatient. Plan to continue with the Lisinopril 5 mg daily Reduce salt. Diabetic management. 4. Hypercholesterolemia Status Chronic Onset Date Unknown Plan Elevated triglycerides. Hypercholesterolemia. Patient will be discharged home on a Lipitor 20 mg daily. 5. Nicotine dependence Status Chronic Onset Date Unknown Plan Smoking cessation encouraged. Discharged home on a nicotine patch 6. Hypomagnesemia Status Acute Onset Date Unknown Plan The magnesium was replaced this morning. Patient will need to have magnesium levels checked are reviewed on discharge. Current status: stable Anticipated discharge date: Anticipated discharge placement: Patient care time: Time spent in chart review, patient interview, physical exam, CPOE, and care documentation: 25 minutes Visit to patient today: Complexity of care: E&M Codes Rounding: Obsv-Comp/High/[id number]
[2016-06-16 07:03] VITALS: BP 123/82
[2016-06-16] MEDS ORDERED: LANTUS SOL100 UNITS/ SC (09:43)
[2016-06-16] MEDS ORDERED: LIPITOR40 MG PO (09:44)
--- NOTE | 2016-06-16 09:48 | Provider's Discharge Care Plan ---
Problem, Goal, Plan Problem List 1. Chest pain Goals: Improve function, Improved health/wellness, Prevent disease progress, Screening Instructions: Follow up as needed, Stop smoking 2. Diabetes mellitus Goals: Improve disease control, Improve nutrition status, Screening Instructions: Follow up as directed, Stop smoking, outpatient recommendations for diabetes management 3. Hypertension Goals: Improve disease control, Learn about illness, Therapeutic intervention Instructions: Follow up as directed, Stop smoking 4. Hypercholesterolemia Goals: Improve disease control, Screening Instructions: Take meds as directed, Stop smoking 5. Nicotine dependence Goals: Improved health/wellness, Improve nutrition status Instructions: Follow up as directed, Stop smoking 6. Hypomagnesemia Goals: Improved health/wellness Instructions: Follow up as directed
== END 2016-06-16 11:23 | disposition home or self-care (01) ==
LOC: ED SRH 16:34 → TRANS SRH 18:32 → ACUTE2 SRH 18:32
PROVIDERS: ADMIT Internal Medicine
DX: R07.9 Chest pain, unspecified (principal); E11.65 Type 2 diabetes mellitus with hyperglycemia; Z79.84 Long term (current) use of oral hypoglycemic drugs; E83.42 Hypomagnesemia; E78.5 Hyperlipidemia, unspecified; I10 Essential (primary) hypertension; K21.9 Gastro-esophageal reflux disease without esophagitis; F17.290 Nicotine dependence, other tobacco product, uncomplicated; Z77.29 Contact with and (suspected) exposure to other hazardous substances
CPT/HCPCS: 29230; 29243; 29244; 29247; 29251; 29263; 90004; 90047; 90074; 90098; 90100; 90616; 91286; 91556; 92610; 92690; 92720; 95059

== ENCOUNTER 2016-08-20 13:13 | Emergency (ER) | payer OTHER ==
[~2016-08-20 13:13] MED LIST: ASPIRIN ADULT L81 M1 PO; IBUPROFEN400 MG PO; LANTUS SOL100 UNITS/ SC; LIPITOR40 MG PO; METFORMIN HCL500 MG PO; MOTRIN100 MG/5 M PO; PRINIVIL5 MG PO
--- NOTE | 2016-08-20 14:37 | ED NURSING NOTES ---
Clinical Report - Nurses [facility] [address] [place] [address] 08/20/2016 13:14 Patient: LILY AWAD TRIAGE Triage time 13:27. Acuity: LEVEL 3. Chief Complaint: REDNESS and PAIN TO RIGHT EYE. Alert. No acute distress. VISUAL ACUITY: Visual acuity performed with corrective lenses: left eye 20/20 unable to obtain due to pain. --13:34 Cony Santoyo R.N. 13:27 08/20/16. BP: 133/62. HR: 96. RR: 20. O2 saturation: 99%. Temp: 97.6 F. Pain level now: 09/26. --13:34 Cony Santoyo R.N. Height/Length: 72 inches Per Patient. --13:32 Cony Santoyo R.N.. Weight: 72.5 kg. BMI: 21.7. --13:34 Cony Santoyo R.N. Medications Lisinopril Oral 5 mg, daily. MetFORMIN HCl Oral (Tablet 1000 mg) 1 tablet, 2x a day. Suposed to be taking Baby ASA. Suposed to be taking Insulin. --13:30 Cony Santoyo R.N. Medication/allergy information source: the patient. --13:34 Cony Santoyo R.N. Allergies No Known Drug Allergy. --13:30 Cony Santoyo R.N. History Historian: patient and family. Accompanied by family. No primary care physician. This started last night. ( unknown). He has had eye discomfort involving the right eye, eye irritation involving the right eye and decreased vision. ( very painful to open eye.). No eye discharge. 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 PAST MEDICAL HX: Immunizations: status is unknown. SOCIAL HX: Former smoker, end date 2014. Regular alcohol use. No drug use. FALL RISK ASSESSMENT: Fall risk assessment completed. No fall risk identified. NUTRITIONAL RISK ASSESSMENT: The nutritional risk assessment revealed no deficiencies. FUNCTIONAL ASSESSMENT: Functional assessment: no impairments noted. LEARNING NEEDS ASSESSMENT: The learning needs assessment revealed no barriers. SKIN INTEGRITY ASSESSMENT: Skin integrity risk assessment completed. No skin integrity risk identified. --13:34 Cony Santoyo R.N. PROBLEMS: Chest Pain. Hyperlipidemia. Gastroesophageal Reflux. Elevated Cholesterol. Hypertension. Diabetes Mellitus. --13:31 Cony Santoyo R.N. Interventions ID band on patient. To room. --13:34 Cony Santoyo R.N. PHYSICAL ASSESSMENT Ambulatory to room. GENERAL / NEURO / PSYCH: Alert. Appears in pain and anxious. RESPIRATORY: Respirations not labored. CVS: Capillary refill less than 2 seconds. SKIN: Skin is warm and dry. Normal skin turgor. --13:35 Cony Santoyo R.N. NURSING PROGRESS NOTES Head of bed elevated. Two patient identifiers checked. Call light placed in reach. Side rails up x 1. Bed placed in lowest position. Brakes of bed on. Patient ready for evaluation. --13:35 Cony Santoyo R.N. 13:55 08/20/2016 Alcaine (Proparacaine HCl) Eye Drops 1 drop given. Given in the right eye. Allergies verified and confirmed 5 rights. (Instilled by the proveder.). --13:55 Cony Santoyo R.N. 14:02 08/20/2016 Insulin Reg Subcutaneous 12 unit given. Given in the right abdomen. Allergies verified and confirmed 5 rights. --14:02 Cony Santoyo R.N. 14:17 08/20/16. ( Alcaine x 2 gtts to the rt eye, then acuity done. Acuity of rt eye 20/50.). --14:17 Cony Santoyo R.N. 13:58. ( Glucose 440mg/dl). --14:36 Cony Santoyo R.N. DISPOSITION / DISCHARGE Condition at departure: improved. No learning barriers present. Discharge instructions provided and reviewed with the patient. Reviewed medication(s) side effects, precautions, dosing and course information. Prescription(s) given to the patient. Patient verbalized understanding. Written instructions provided in Vietnamese. The patient was discharged home and accompanied by spouse. He left the Emergency Department ambulatory and via private vehicle. Spouse driving. Medication list reviewed and validated. --14:44 Cony Santoyo R.N. 14:43 08/20/16. BP: 128/78. HR: 87. RR: 16. O2 saturation: 99% on room air. Temp: deferred. Pain level now: 04/26. 13:27 08/20/16. BP: 133/62. HR: 96. RR: 20. O2 saturation: 99%. Temp: 97.6 F. Pain level now: 09/26. --14:44 Cony Santoyo R.N. Locked/Released at 08/20/2016 14:45 by Cony Santoyo R.N.
--- NOTE | 2016-08-20 14:37 | ED ORDER SUMMARY ---
..... Patient: LILY AWAD OrderSheet [facility] VisitID: [id number] [address] [place] [address] 46y, M Registration Date/Time: 08/20/2016 ORDER SHEET Weight: 72.5 kg Allergies: No Known Drug Allergy GENERAL ORDERS: POC Glucose (13:37 08/20/2016 EKjudithleany P.A.-C) (13:54 SRoberts R.N.) Visual Acuity (may use 2 drops of proparacaine, then immidiatley do acuity) (14:09 08/20/2016 EKoroleva P.A.-C) (14:17 SRoberts R.N.) MEDICATION ORDERS: Alcaine Eye Drops (Solution 0.5 %) 1 drop (NOW, affected eye) (13:42 08/20/2016 SRoberts R.N. verbal order read back to Zohreh PugaAKhurram-C) (Ack 13:42 SRoberts R.N.) (13:55 SRoberts R.N.) Insulin Reg Subcut 12 units (HIGH ALERT MEDICATION, NOW) (13:54 08/20/2016 EKoroleany P.A.-C) (Ack 13:55 SRoberts R.N.) (14:02 SRoberts R.N.) IV FLUIDS: ORDER SHEET NOTES: [Electronically signed by Cony Santoyo R.N. (14:45 08/20/2016)] [Electronically signed by Monik Austin-Torrie (14:54 08/20/2016)] [Electronically locked/signed by Cony Santoyo R.N. (14:45 08/20/2016)]
--- NOTE | 2016-08-20 14:37 | ED ORDER SUMMARY ---
..... Patient: LILY AWAD OrderSheet [facility] VisitID: [id number] [address] [place] [address] 46y, M Registration Date/Time: 08/20/2016 ORDER SHEET Weight: 72.5 kg Allergies: No Known Drug Allergy GENERAL ORDERS: POC Glucose (13:37 08/20/2016 EKjudithleany P.A.-C) (13:54 SRoberts R.N.) Visual Acuity (may use 2 drops of proparacaine, then immidiatley do acuity) (14:09 08/20/2016 EKoroleva P.A.-C) (14:17 SRoberts R.N.) MEDICATION ORDERS: Alcaine Eye Drops (Solution 0.5 %) 1 drop (NOW, affected eye) (13:42 08/20/2016 SRoberts R.N. verbal order read back to Zohreh PugaAKhurram-C) (Ack 13:42 SRoberts R.N.) (13:55 SRoberts R.N.) Insulin Reg Subcut 12 units (HIGH ALERT MEDICATION, NOW) (13:54 08/20/2016 EKoroleany P.A.-C) (Ack 13:55 SRoberts R.N.) (14:02 SRoberts R.N.) IV FLUIDS: ORDER SHEET NOTES: [Electronically signed by Cony Santoyo R.N. (14:45 08/20/2016)] [Electronically signed by Monik Austin-Torrie (14:54 08/20/2016)] [Electronically locked/signed by Cony Santoyo R.N. (14:45 08/20/2016)]
--- NOTE | 2016-08-20 14:37 | ED CLINICAL REPORT ---
Clinical Report - Physicians/Mid Levels [facility] [address] [place] [address] 08/20/2016 13:14 [id number] Time Seen: 14:08 Aug 20 2016. Arrived- By private vehicle. Historian- patient. HISTORY OF PRESENT ILLNESS Chief Complaint: EYE PAIN, REDNESS and IRRITATION. This started yesterday, involves the right eye and is characterized as mild. The patient did not sustain an injury. Not injured from contact lenses. No direct trauma to the eyes. No chemical exposure. Eye pain, discomfort, redness, irritation and discharge. Eye itching. Photophobia. Blurred vision. No double vision or loss of vision. Decreased vision. ( blurred vision, injection,). REVIEW OF SYSTEMS No sore throat. All systems otherwise negative, except as recorded above. PAST HISTORY Diabetes mellitus. No history of prior eye injury. He does not wear contact lenses. SOCIAL HISTORY Former smoker. Alcohol use. ADDITIONAL NOTES The nursing notes have been reviewed. PHYSICAL EXAM Vital Signs: 08/20/2016 13:27 BP: 133/62. HR: 96. RR: 20. O2 saturation: 99%. Temp: 97.6 F. Pain level now: 8/10. HEENT: Ears normal. Nose normal. Eyes: Visual acuity noted- see nurse's notes. Right eyelid everted for examination. Corneas examined with fluorescein stain. EOMs intact. Periorbital areas appear normal to inspection. Rt Eye: Injected conjunctiva. Exudate present. No fluorescein dye uptake or EOM palsy. No other corneal abnormality. Lt Eye: Left eye exam normal. Neck: Neck supple. Normal inspection. CVS: Normal heart rate and rhythm. Heart sounds normal. Abdomen: Nontender. PROGRESS AND PROCEDURES Course of Care: left eye 20/20 unable to obtain due to pain Alcaine x 2 gtts to the rt eye, then acuity done. Acuity of rt eye 20/50. POC GLUCOSE 440 prior records from [facility] pt on lisinopril/ atrovastatin/ metformin/ lantus Pt needs to establish pcp. Proparacain changed his sx, thus suspicion for acute closure/ retinal detachment is lowest. pt wears corrective lenses, not inER. 08/20/2016 14:43 BP: 128/78. HR: 87. RR: 16. O2 saturation: 99%. Pain level now: 3/10. Patient is stable. Physical exam findings are unchanged. Symptoms better. Patient/family counseled. Disposition: Discharged. Condition: good. CLINICAL IMPRESSION Acute conjunctivitis of the right eye. Chronic, poorly controlled type 2 diabetes with hyperglycemia. Uncontrolled hypertension. INSTRUCTIONS Do not smoke. No alcohol. ([facility] YOU need to establish primary care). Prescription Medications: Insulin. Take daily and at bedtime. Dispense one (1) 10 mL vial. No refills. (10 units at bedtime lantus) Polytrim ophthalmic solution: Instill 1 drop into affected eye every 3 hours while awake (max 6 doses per day) for 1 week. Dispense five (5) mL. No refills. Substitution is permissible. Follow-up: Follow up with a specialist. Understanding of the discharge instructions verbalized by patient. Follow-up with: Irene Jose MD, Ophthalmology, [facility], [address] [place] [address] - [address] [address] Follow up Friday. Follow-up with: Azeem Trevino MD, [facility], , [facility], [address] [place] [address] (Electronically signed by Monik Austin P.A.-C 08/20/2016 14:54)
--- NOTE | 2016-08-20 14:37 | ED NURSING NOTES ---
Clinical Report - Nurses [facility] [address] [place] [address] 08/20/2016 13:14 Patient: LILY AWAD TRIAGE Triage time 13:27. Acuity: LEVEL 3. Chief Complaint: REDNESS and PAIN TO RIGHT EYE. Alert. No acute distress. VISUAL ACUITY: Visual acuity performed with corrective lenses: left eye 20/20 unable to obtain due to pain. --13:34 Cony Santoyo R.N. 13:27 08/20/16. BP: 133/62. HR: 96. RR: 20. O2 saturation: 99%. Temp: 97.6 F. Pain level now: 09/26. --13:34 Cony Santoyo R.N. Height/Length: 72 inches Per Patient. --13:32 Cony Santoyo R.N.. Weight: 72.5 kg. BMI: 21.7. --13:34 Cony Santoyo R.N. Medications Lisinopril Oral 5 mg, daily. MetFORMIN HCl Oral (Tablet 1000 mg) 1 tablet, 2x a day. Suposed to be taking Baby ASA. Suposed to be taking Insulin. --13:30 Cony Santoyo R.N. Medication/allergy information source: the patient. --13:34 Cony Santoyo R.N. Allergies No Known Drug Allergy. --13:30 Cony Santoyo R.N. History Historian: patient and family. Accompanied by family. No primary care physician. This started last night. ( unknown). He has had eye discomfort involving the right eye, eye irritation involving the right eye and decreased vision. ( very painful to open eye.). No eye discharge. 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 PAST MEDICAL HX: Immunizations: status is unknown. SOCIAL HX: Former smoker, end date 2014. Regular alcohol use. No drug use. FALL RISK ASSESSMENT: Fall risk assessment completed. No fall risk identified. NUTRITIONAL RISK ASSESSMENT: The nutritional risk assessment revealed no deficiencies. FUNCTIONAL ASSESSMENT: Functional assessment: no impairments noted. LEARNING NEEDS ASSESSMENT: The learning needs assessment revealed no barriers. SKIN INTEGRITY ASSESSMENT: Skin integrity risk assessment completed. No skin integrity risk identified. --13:34 Cony Santoyo R.N. PROBLEMS: Chest Pain. Hyperlipidemia. Gastroesophageal Reflux. Elevated Cholesterol. Hypertension. Diabetes Mellitus. --13:31 Cony Santoyo R.N. Interventions ID band on patient. To room. --13:34 Cony Santoyo R.N. PHYSICAL ASSESSMENT Ambulatory to room. GENERAL / NEURO / PSYCH: Alert. Appears in pain and anxious. RESPIRATORY: Respirations not labored. CVS: Capillary refill less than 2 seconds. SKIN: Skin is warm and dry. Normal skin turgor. --13:35 Cony Santoyo R.N. NURSING PROGRESS NOTES Head of bed elevated. Two patient identifiers checked. Call light placed in reach. Side rails up x 1. Bed placed in lowest position. Brakes of bed on. Patient ready for evaluation. --13:35 Cony Santoyo R.N. 13:55 08/20/2016 Alcaine (Proparacaine HCl) Eye Drops 1 drop given. Given in the right eye. Allergies verified and confirmed 5 rights. (Instilled by the proveder.). --13:55 Cony Santoyo R.N. 14:02 08/20/2016 Insulin Reg Subcutaneous 12 unit given. Given in the right abdomen. Allergies verified and confirmed 5 rights. --14:02 Cony Santoyo R.N. 14:17 08/20/16. ( Alcaine x 2 gtts to the rt eye, then acuity done. Acuity of rt eye 20/50.). --14:17 Cony Santoyo R.N. 13:58. ( Glucose 440mg/dl). --14:36 Cony Santoyo R.N. DISPOSITION / DISCHARGE Condition at departure: improved. No learning barriers present. Discharge instructions provided and reviewed with the patient. Reviewed medication(s) side effects, precautions, dosing and course information. Prescription(s) given to the patient. Patient verbalized understanding. Written instructions provided in Syriac. The patient was discharged home and accompanied by spouse. He left the Emergency Department ambulatory and via private vehicle. Spouse driving. Medication list reviewed and validated. --14:44 Cony Santoyo R.N. 14:43 08/20/16. BP: 128/78. HR: 87. RR: 16. O2 saturation: 99% on room air. Temp: deferred. Pain level now: 04/26. 13:27 08/20/16. BP: 133/62. HR: 96. RR: 20. O2 saturation: 99%. Temp: 97.6 F. Pain level now: 09/26. --14:44 Cony Santoyo R.N. Locked/Released at 08/20/2016 14:45 by Cony Santoyo R.N.
--- NOTE | 2016-08-20 14:37 | ED CLINICAL REPORT ---
Clinical Report - Physicians/Mid Levels [facility] [address] [place] [address] 08/20/2016 13:14 [id number] Time Seen: 14:08 Aug 20 2016. Arrived- By private vehicle. Historian- patient. HISTORY OF PRESENT ILLNESS Chief Complaint: EYE PAIN, REDNESS and IRRITATION. This started yesterday, involves the right eye and is characterized as mild. The patient did not sustain an injury. Not injured from contact lenses. No direct trauma to the eyes. No chemical exposure. Eye pain, discomfort, redness, irritation and discharge. Eye itching. Photophobia. Blurred vision. No double vision or loss of vision. Decreased vision. ( blurred vision, injection,). REVIEW OF SYSTEMS No sore throat. All systems otherwise negative, except as recorded above. PAST HISTORY Diabetes mellitus. No history of prior eye injury. He does not wear contact lenses. SOCIAL HISTORY Former smoker. Alcohol use. ADDITIONAL NOTES The nursing notes have been reviewed. PHYSICAL EXAM Vital Signs: 08/20/2016 13:27 BP: 133/62. HR: 96. RR: 20. O2 saturation: 99%. Temp: 97.6 F. Pain level now: 8/10. HEENT: Ears normal. Nose normal. Eyes: Visual acuity noted- see nurse's notes. Right eyelid everted for examination. Corneas examined with fluorescein stain. EOMs intact. Periorbital areas appear normal to inspection. Rt Eye: Injected conjunctiva. Exudate present. No fluorescein dye uptake or EOM palsy. No other corneal abnormality. Lt Eye: Left eye exam normal. Neck: Neck supple. Normal inspection. CVS: Normal heart rate and rhythm. Heart sounds normal. Abdomen: Nontender. PROGRESS AND PROCEDURES Course of Care: left eye 20/20 unable to obtain due to pain Alcaine x 2 gtts to the rt eye, then acuity done. Acuity of rt eye 20/50. POC GLUCOSE 440 prior records from [facility] pt on lisinopril/ atrovastatin/ metformin/ lantus Pt needs to establish pcp. Proparacain changed his sx, thus suspicion for acute closure/ retinal detachment is lowest. pt wears corrective lenses, not inER. 08/20/2016 14:43 BP: 128/78. HR: 87. RR: 16. O2 saturation: 99%. Pain level now: 3/10. Patient is stable. Physical exam findings are unchanged. Symptoms better. Patient/family counseled. Disposition: Discharged. Condition: good. CLINICAL IMPRESSION Acute conjunctivitis of the right eye. Chronic, poorly controlled type 2 diabetes with hyperglycemia. Uncontrolled hypertension. INSTRUCTIONS Do not smoke. No alcohol. ([facility] need [facility]). Prescription Medications: Insulin. Take daily and at bedtime. Dispense one (1) 10 mL vial. No refills. (10 units at bedtime lantus) Polytrim ophthalmic solution: Instill 1 drop into affected eye every 3 hours while awake (max 6 doses per day) for 1 week. Dispense five (5) mL. No refills. Substitution is permissible. Follow-up: Follow up with a specialist. Understanding of the discharge instructions verbalized by patient. Follow-up with: Irene Jose MD, Ophthalmology, [facility], [address] [place] [address] - [address] [address] Follow up Friday. Follow-up with: Azeem Trevino MD, [facility] [place], , [facility], [address] [place] [address] (Electronically signed by Monik Austin P.A.-C 08/20/2016 14:54)
--- NOTE | 2016-08-20 14:54 | ED MED RECONCILIATION SUMMARY ---
Patient: LILY AWAD Medication Reconciliation Report [facility] VisitID: [id number] [address] [place] [address] 46y, M Registration Date/Time: 08/20/2016 Weight: 72.5 kg Height/Length: 72 in. BMI: 21.7 ALLERGIES: No Known Drug Allergy The patient's Home Medications are listed below: THE FOLLOWING MEDICATIONS NEED TO BE RECONCILED: Lisinopril Oral 5 mg, daily MetFORMIN HCl Oral (1000 mg) 1 tablet, 2x a day Suposed to be taking Baby ASA Suposed to be taking Insulin The source(s) of the original Home Medication information: patient The following Medications were given to the patient in the Emergency Department: Alcaine [Eye Drops] Eye Drops 1 drop, administered: 08/20/2016 1:55:00 PM Insulin Reg [Subcutaneous] Subcutaneous 12 unit, administered: 08/20/2016 2:02:00 PM The following Medications were prescribed to the patient: Insulin. Take daily and at bedtime. Dispense one (1) 10 mL vial. No refills.(10 units at bedtime lantus) -- Monik Austin, P.A.-C Polytrim ophthalmic solution: Instill 1 drop into affected eye every 3 hours while awake (max 6 doses per day) for 1 week. Dispense five (5) mL. No refills. Substitution is permissible. -- Monik Austin, P.A.-C
--- NOTE | 2016-08-20 14:54 | ED DISCHARGE INSTRUCTIONS ---
Patient: LILY AWAD General Instructions [facility] VisitID: [id number] [place] [address] 46y, M Registration Date/Time: 08/20/2016 Acute conjunctivitis of the right eye. Chronic, poorly controlled type 2 diabetes with hyperglycemia. Uncontrolled hypertension. INSTRUCTIONS Do not smoke. No alcohol. ([facility] YOU need to establish primary care). Prescription Medications: Insulin. Take daily and at bedtime. Dispense one (1) 10 mL vial. No refills. (10 units at bedtime lantus) Polytrim ophthalmic solution: Instill 1 drop into affected eye every 3 hours while awake (max 6 doses per day) for 1 week. Dispense five (5) mL. No refills. Substitution is permissible. Follow-up: Follow up with a specialist. Understanding of the discharge instructions verbalized by patient. Follow-up with: Irene Jose MD, Ophthalmology, [facility], [address] [place] [address] [address] [address] Follow up Friday. Follow-up with: Azeem Trevino MD, [facility], , [facility], [address] [place] [address] ADDITIONAL INFORMATION Conjunctivitis, Non-Specific The membrane that covers your eye is inflamed. Any itching, burning or irritation should go away within the next 24 hours. Conjunctivitis may be related to a particle that was in your eye. If so, it was washed out with your tears or irrigation treatment. Being exposed to liquid chemicals or fumes may also cause this reaction. Your condition does not appear to be due to an eye infection. Home Care: Apply a cold pack (ice in a plastic bag, wrapped in a towel) over the eye for 20 minutes at a time. This will reduce pain. Eye drops may be prescribed to reduce irritation or redness. Otherwise, Visine or similar [id number] decongestant eye drops may be used. You may use acetaminophen (Tylenol) or ibuprofen (Motrin, Advil) to control pain, unless another medicine was prescribed. [ NOTE: If you have chronic liver or kidney disease or ever had a stomach ulcer or GI bleeding, talk with your doctor before using these medicines.] Follow Up with your doctor or this facility as directed, or if your symptoms have not improved after 24 hours. Get Prompt Medical Attention if any of the following occur: Increased eyelid swelling Increase in eye pain Increased redness or drainage from the eye Failure of normal vision to return within 24-48 hours. High Blood Pressure --Established High Blood Pressure (Hypertension) is a chronic disease. The cause is unknown in most cases. It can usually be controlled with lifestyle changes and/or medicines. Symptoms of high blood pressure may include headache, dizziness, visual changes, chest pain and shortness of breath. Sometimes it causes no symptoms at all. However, even if there are no symptoms, untreated high blood pressure increases the risk of heart attack, also known as acute myocardial infarction, or AMI, and stroke. It is a serious health risk and should not be ignored. A normal blood pressure is 120/80 or less. The first (top) number is the "systolic" pressure. The second (bottom) number is the "diastolic" pressure. Hypertension exists when either the top number is 140 or higher, OR the bottom number is 90 or higher on repeated measurements. Home Care: All patients with high blood pressure should do the following to lower their pressure. If you are on medicines, then these methods may reduce or eliminate your need for medicines in the future. Begin a weight loss program if you are overweight. Reduce your salt intake. Avoid high salt foods (olives, pickles, smoked meats, salted potato chips, etc.). Do not add salt to your food at the table. Use only small amounts of salt when cooking. Begin an exercise program. Discuss with your doctor what type of exercise program would be best for you. It doesn't have to be difficult. Even brisk walking for 20 minutes three times a week is a good form of exercise. Avoid medicines which contain heart stimulants. This includes many cold and sinus decongestant pills and sprays as well as diet pills. Check the warnings about hypertension on the label. Stimulants such as amphetamine or cocaine could be lethal for someone with hypertension. Never take these. Limit your caffeine intake or switch to caffeine-free products. Stop smoking. If you are a long-time smoker, this can be hard. Enroll in a stop-smoking program to improve your chance of success. Learning how to handle stress better is an important part of any program to lower blood pressure. Learn about relaxation methods such as meditation, yoga or biofeedback. If medicines were prescribed, take them exactly as directed. Missing doses may cause your blood pressure get out of control. Consider buying an automatic blood pressure machine (available at most pharmacies). Use this to monitor your blood pressure at home and report the results to your doctor. Follow Up: Regular visits to your own physician for blood pressure checks and medicine adjustment is an important part of your care. Make a follow-up appointment as directed by our staff. Get Prompt Medical Attention if any of the following occur: Chest pain or shortness of breath Severe headache Throbbing or rushing sound in the ears Nosebleed Sudden severe abdominal pain Extreme drowsiness, confusion or fainting Dizziness or vertigo (dizziness with spinning sensation) Weakness of an arm or leg or one side of the face Difficulty with speech or vision You have been given the following additional information: Conjunctivitis, Non-Specific Hypertension, Established (Electronically signed by Monik Austin P.A.-C 08/20/2016 14:54)
--- NOTE | 2016-08-20 14:54 | ED DISCHARGE INSTRUCTIONS ---
Patient: LILY AWAD General Instructions [facility] VisitID: [id number] [place] [address] 46y, M Registration Date/Time: 08/20/2016 Acute conjunctivitis of the right eye. Chronic, poorly controlled type 2 diabetes with hyperglycemia. Uncontrolled hypertension. INSTRUCTIONS Do not smoke. No alcohol. ([facility] YOU need to establish primary care). Prescription Medications: Insulin. Take daily and at bedtime. Dispense one (1) 10 mL vial. No refills. (10 units at bedtime lantus) Polytrim ophthalmic solution: Instill 1 drop into affected eye every 3 hours while awake (max 6 doses per day) for 1 week. Dispense five (5) mL. No refills. Substitution is permissible. Follow-up: Follow up with a specialist. Understanding of the discharge instructions verbalized by patient. Follow-up with: Irene Jose MD, Ophthalmology, [facility], [address] [place] [address] [address] [address] Follow up Friday. Follow-up with: Azeem Trevino MD, [facility], , [facility], [address] [place] [address] ADDITIONAL INFORMATION Conjunctivitis, Non-Specific The membrane that covers your eye is inflamed. Any itching, burning or irritation should go away within the next 24 hours. Conjunctivitis may be related to a particle that was in your eye. If so, it was washed out with your tears or irrigation treatment. Being exposed to liquid chemicals or fumes may also cause this reaction. Your condition does not appear to be due to an eye infection. Home Care: Apply a cold pack (ice in a plastic bag, wrapped in a towel) over the eye for 20 minutes at a time. This will reduce pain. Eye drops may be prescribed to reduce irritation or redness. Otherwise, Visine or similar [id number] decongestant eye drops may be used. You may use acetaminophen (Tylenol) or ibuprofen (Motrin, Advil) to control pain, unless another medicine was prescribed. [ NOTE: If you have chronic liver or kidney disease or ever had a stomach ulcer or GI bleeding, talk with your doctor before using these medicines.] Follow Up with your doctor or this facility as directed, or if your symptoms have not improved after 24 hours. Get Prompt Medical Attention if any of the following occur: Increased eyelid swelling Increase in eye pain Increased redness or drainage from the eye Failure of normal vision to return within 24-48 hours. High Blood Pressure --Established High Blood Pressure (Hypertension) is a chronic disease. The cause is unknown in most cases. It can usually be controlled with lifestyle changes and/or medicines. Symptoms of high blood pressure may include headache, dizziness, visual changes, chest pain and shortness of breath. Sometimes it causes no symptoms at all. However, even if there are no symptoms, untreated high blood pressure increases the risk of heart attack, also known as acute myocardial infarction, or AMI, and stroke. It is a serious health risk and should not be ignored. A normal blood pressure is 120/80 or less. The first (top) number is the "systolic" pressure. The second (bottom) number is the "diastolic" pressure. Hypertension exists when either the top number is 140 or higher, OR the bottom number is 90 or higher on repeated measurements. Home Care: All patients with high blood pressure should do the following to lower their pressure. If you are on medicines, then these methods may reduce or eliminate your need for medicines in the future. Begin a weight loss program if you are overweight. Reduce your salt intake. Avoid high salt foods (olives, pickles, smoked meats, salted potato chips, etc.). Do not add salt to your food at the table. Use only small amounts of salt when cooking. Begin an exercise program. Discuss with your doctor what type of exercise program would be best for you. It doesn't have to be difficult. Even brisk walking for 20 minutes three times a week is a good form of exercise. Avoid medicines which contain heart stimulants. This includes many cold and sinus decongestant pills and sprays as well as diet pills. Check the warnings about hypertension on the label. Stimulants such as amphetamine or cocaine could be lethal for someone with hypertension. Never take these. Limit your caffeine intake or switch to caffeine-free products. Stop smoking. If you are a long-time smoker, this can be hard. Enroll in a stop-smoking program to improve your chance of success. Learning how to handle stress better is an important part of any program to lower blood pressure. Learn about relaxation methods such as meditation, yoga or biofeedback. If medicines were prescribed, take them exactly as directed. Missing doses may cause your blood pressure get out of control. Consider buying an automatic blood pressure machine (available at most pharmacies). Use this to monitor your blood pressure at home and report the results to your doctor. Follow Up: Regular visits to your own physician for blood pressure checks and medicine adjustment is an important part of your care. Make a follow-up appointment as directed by our staff. Get Prompt Medical Attention if any of the following occur: Chest pain or shortness of breath Severe headache Throbbing or rushing sound in the ears Nosebleed Sudden severe abdominal pain Extreme drowsiness, confusion or fainting Dizziness or vertigo (dizziness with spinning sensation) Weakness of an arm or leg or one side of the face Difficulty with speech or vision You have been given the following additional information: Conjunctivitis, Non-Specific Hypertension, Established (Electronically signed by Monik Austin P.A.-C 08/20/2016 14:54)
--- NOTE | 2016-08-20 14:54 | ED MAR SUMMARY ---
..... Medication Administration Record [facility] [address] [place] [address] Patient: LILY AWAD Visit ID: [id number] 46y, M Weight: 72.5 kg Height/Length: 72 in BMI: 21.7 ALLERGIES: No Known Drug Allergy Given 13:55 08/20/2016 Cony Santoyo R.N. Medication Administered: ALCAINE [EYE DROPS] (PROPARACAINE HCL), Dose: 1 drop Eye Drops. Medication Ordered: Alcaine Eye Drops (Solution 0.5 %) 1 drop (NOW, affected eye). Given 14:02 08/20/2016 Cony Santoyo, RKhurramN. Medication Administered: INSULIN REG [SUBCUTANEOUS], Dose: 12 unit Subcutaneous. Medication Ordered: Insulin Reg Subcut 12 units (HIGH ALERT MEDICATION, NOW).
--- NOTE | 2016-08-20 14:54 | ED MED RECONCILIATION SUMMARY ---
Patient: LILY AWAD Medication Reconciliation Report [facility] VisitID: [id number] [address] [place] [address] 46y, M Registration Date/Time: 08/20/2016 Weight: 72.5 kg Height/Length: 72 in. BMI: 21.7 ALLERGIES: No Known Drug Allergy The patient's Home Medications are listed below: THE FOLLOWING MEDICATIONS NEED TO BE RECONCILED: Lisinopril Oral 5 mg, daily MetFORMIN HCl Oral (1000 mg) 1 tablet, 2x a day Suposed to be taking Baby ASA Suposed to be taking Insulin The source(s) of the original Home Medication information: patient The following Medications were given to the patient in the Emergency Department: Alcaine [Eye Drops] Eye Drops 1 drop, administered: 08/20/2016 1:55:00 PM Insulin Reg [Subcutaneous] Subcutaneous 12 unit, administered: 08/20/2016 2:02:00 PM The following Medications were prescribed to the patient: Insulin. Take daily and at bedtime. Dispense one (1) 10 mL vial. No refills.(10 units at bedtime lantus) -- Monik Austin, P.A.-C Polytrim ophthalmic solution: Instill 1 drop into affected eye every 3 hours while awake (max 6 doses per day) for 1 week. Dispense five (5) mL. No refills. Substitution is permissible. -- Monik Austin, P.A.-C
--- NOTE | 2016-08-20 14:54 | ED MAR SUMMARY ---
..... Medication Administration Record [facility] [address] [place] [address] Patient: LILY AWAD Visit ID: [id number] 46y, M Weight: 72.5 kg Height/Length: 72 in BMI: 21.7 ALLERGIES: No Known Drug Allergy Given 13:55 08/20/2016 Cony Santoyo R.N. Medication Administered: ALCAINE [EYE DROPS] (PROPARACAINE HCL), Dose: 1 drop Eye Drops. Medication Ordered: Alcaine Eye Drops (Solution 0.5 %) 1 drop (NOW, affected eye). Given 14:02 08/20/2016 Cony Santoyo, RKhurramN. Medication Administered: INSULIN REG [SUBCUTANEOUS], Dose: 12 unit Subcutaneous. Medication Ordered: Insulin Reg Subcut 12 units (HIGH ALERT MEDICATION, NOW).
== END 2016-08-20 14:42 | disposition home or self-care (01) ==
LOC: ED SRH 13:13
DX: H10.31 Unspecified acute conjunctivitis, right eye (principal); E11.65 Type 2 diabetes mellitus with hyperglycemia; I10 Essential (primary) hypertension; Z79.84 Long term (current) use of oral hypoglycemic drugs; Z79.899 Other long term (current) drug therapy; Z87.891 Personal history of nicotine dependence